=== PATIENT | female | born 1950 | race Caucasian/White ===

== ENCOUNTER → 2017-04-15 | Outpatient (CLI) | payer MEDICARE ==
--- NOTE | 2017-04-16 10:06 | MM ---
Reason for exam: screening (asymptomatic). Last mammogram was performed 1 year ago. History: Patient is postmenopausal. Took estrogen for 2 years beginning at age 50. Physical Findings: A clinical breast exam by your physician is recommended on an annual basis and results should be correlated with mammographic findings. MG 3D Screening Mammo W/Cad Bilateral CC and MLO view(s) were taken. Prior study comparison: April 12, 2016, bilateral MG 3d screening mammo w/cad. March 01, 2015, bilateral MG screening mammo w CAD. The breast tissue is heterogeneously dense. This may lower the sensitivity of mammography. There is chronic nodularity bilaterally. No significant changes when compared with prior studies. ASSESSMENT: Benign, BI-RAD 2 RECOMMENDATION: Routine screening mammogram of both breasts in 1 year.
== END | disposition home or self-care (01) ==
LOC: RADMAMWWP 10:03
PROVIDERS: ATTEND Internal Medicine
DX: Z12.31 Encounter for screening mammogram for malignant neoplasm of breast (principal)
CPT/HCPCS: 77063; G0202

== ENCOUNTER → 2018-04-24 | Outpatient (CLI) | payer MEDICARE ==
--- NOTE | 2018-04-27 12:44 | MM ---
Reason for exam: screening (asymptomatic). Last mammogram was performed 1 year ago. History: Patient is postmenopausal. Took estrogen for 2 years beginning at age 50. Physical Findings: A clinical breast exam by your physician is recommended on an annual basis and results should be correlated with mammographic findings. MG 3D Screening Mammo W/Cad Bilateral CC and MLO view(s) were taken. Prior study comparison: April 15, 2017, bilateral MG 3d screening mammo w/cad. April 12, 2016, bilateral MG 3d screening mammo w/cad. The breast tissue is heterogeneously dense. This may lower the sensitivity of mammography. Stable benign calcifications. No significant changes when compared with prior studies. ASSESSMENT: Benign, BI-RAD 2 RECOMMENDATION: Routine screening mammogram of both breasts in 1 year.
== END | disposition home or self-care (01) ==
LOC: RADMAMWWP 13:36
PROVIDERS: ATTEND Internal Medicine
DX: Z12.31 Encounter for screening mammogram for malignant neoplasm of breast (principal)
CPT/HCPCS: 77063; 77067

== ENCOUNTER → 2019-04-26 | Outpatient (CLI) | payer MEDICARE ==
--- NOTE | 2019-04-26 11:02 | MM ---
Reason for exam: screening (asymptomatic). Last mammogram was performed 1 year ago. History: Patient is postmenopausal. Family history of breast cancer in sister. Took estrogen for 2 years beginning at age 50. Physical Findings: A clinical breast exam by your physician is recommended on an annual basis and results should be correlated with mammographic findings. MG 3D Screening Mammo W/Cad Bilateral CC and MLO view(s) were taken. Prior study comparison: April 24, 2018, bilateral MG 3d screening mammo w/cad. April 15, 2017, bilateral MG 3d screening mammo w/cad. The breast tissue is heterogeneously dense. This may lower the sensitivity of mammography. There are benign appearing round dystrophic calcifications bilaterally. There is chronic nodularity bilaterally. Focal asymmetry right more prominent 2D verus tomosynthesis images. ASSESSMENT: Incomplete: need additional imaging evaluation, BI-RAD 0 RECOMMENDATION: Special view mammogram of the right breast. If lesion persists on supplemental views, image directed ultrasound is recommended. [facility] will attempt to contact patient to return for supplemental views and ultrasound if indicated.
--- NOTE | 2019-04-26 19:24 | BD ---
EXAMINATION TYPE: Axial Bone Density DATE OF EXAM: 04/26/2019 COMPARISON: 2010 CLINICAL HISTORY: 68-year-old female postmenopausal screening without HRT Height: 65.25 Weight: 283 FRAX RISK QUESTIONS: Alcohol (3 or more units per day): no Family History (Parent hip fracture): yes, father Glucocorticoids (More than 3mos): no (Ex: prednisone, prednisolone, methylprednisolone, dexamethasone, and hydrocortisone). History of Fracture in Adulthood: yes, finger, toe Secondary Osteoporosis: 1. Type 1 Diabetes: no 2. Hyperthyroidism: no 3. Menopause before 45: no 4. Malnutrition: no 5. Chronic liver disease: no Rheumatoid Arthritis: no Current Tobacco Use: no RISK FACTORS HISTORY OF: Family History of Osteoporosis: yes Active: yes Diet low in dairy products/other sources of calcium: at least one serving a day Postmenopausal woman: yes Take estrogen and/or progesterone medications: not now How long: estrogen about 2 years Lost more than 2 inches in height since high school: possibly, states height may have been close to 6 8 inches at one time Frequent falls: no Poor Health: "fair" Hyperparathyroidism: no Adrenal Insufficiency: no MEDICATIONS: Prednisone or other steroids: no Thyroid Medications: yes Which medication: Levothyroxine How Long: over 5 or more Osteoporosis Medications: no Additional Medications: blood pressure med, cholesterol med Additional History: bilateral knee replacement EXAM MEASUREMENTS: Bone mineral densitometry was performed using the [employer] System. Bone mineral density as measured about the Lumbar spine is: ----- L1-L4(G/cm2): 1.304 T Score Values are as follows: ----- L2: 0.5 ----- L3: 1.5 ----- L4: 0.6 ----- L1-L4: 1.0 Bone mineral density has: Increased 1.6% since study of: 02/14/2011 Bone mineral density about the R hip (g/cm2): 1.006 Bone mineral density about the L hip (g/cm2): 1.058 T Score values are as follows: -----R Neck: -0.2 -----L Neck: 0.1 -----R Total: 0.2 -----L Total: 0.8 Bone mineral density has: Decreased -5.1% since study of: 02/14/2011 IMPRESSION: Normal (Values between +1 and -1 indicate normal bone mass). Consider repeating this study in 5 year s or sooner if there is some new clinical indication. NOTE: T-SCORE=SD OF THE YOUNG ADULT MEAN.
== END | disposition home or self-care (01) ==
LOC: RADMAMWWP 08:12
PROVIDERS: ATTEND Internal Medicine
DX: Z12.31 Encounter for screening mammogram for malignant neoplasm of breast (principal); Z78.0 Asymptomatic menopausal state
CPT/HCPCS: 77063; 77067; 77080

== ENCOUNTER → 2019-05-06 | Outpatient (CLI) | payer MEDICARE ==
--- NOTE | 2019-05-06 10:04 | MM ---
Reason for exam: additional evaluation requested from abnormal screening. Last mammogram was performed less than 1 month ago. History: Patient is postmenopausal. Took estrogen for 2 years beginning at age 50. Physical Findings: Nurse did not find any significant physical abnormalities on exam. MG 3D Work Up W/Cad RT LM and spot compression MLO view(s) were taken of the right breast. Prior study comparison: April 26, 2019, bilateral MG 3d screening mammo w/cad. April 24, 2018, bilateral MG 3d screening mammo w/cad. The breast tissue is heterogeneously dense. This may lower the sensitivity of mammography. Benign appearing calcifications in the right breast. The previously seen abnormality resolves on additional views and appears as fibroglandular tissue compatible with summation. These results were verbally communicated with the patient and result sheet given to the patient on 05/06/19. ASSESSMENT: Benign, BI-RAD 2 RECOMMENDATION: Return to routine screening mammogram schedule for both breasts.
== END | disposition home or self-care (01) ==
LOC: RADMAMWWP 08:54
PROVIDERS: ATTEND Internal Medicine
DX: R92.8 Other abnormal and inconclusive findings on diagnostic imaging of breast (principal)
CPT/HCPCS: 77065; G0279; 77061

== ENCOUNTER 2020-08-05 13:48 | Emergency (ER) | payer MEDICARE ==
[2020-08-05 15:21] LABS: Basophils # (A) 0.1 k/uL (0-0.2); Basophils % (A) 1 %; Eosinophils # (A) 0.4 k/uL (0-0.7); Eosinophils % (A) 5 %; HCT 46.1 % (34.0-46.0); HGB 15.8 gm/dL (11.4-16.0); Lymphocytes # (A) 2.4 k/uL (1.0-4.8); Lymphocytes % (A) 26 %; MCH 29.3 pg (25.0-35.0); MCHC 34.2 g/dL (31.0-37.0); MCV 85.7 fL (80.0-100.0); Mean Platelet Volume 6.8; Monocytes # (A) 0.5 k/uL (0-1.0); Monocytes % (A) 6 %; Neutrophils # (A) 5.5 k/uL (1.3-7.7); Neutrophils % (A) 60 %; Platelet Count 198 k/uL (150-450); RBC 5.38 m/uL (3.80-5.40); RDW 13.8 % (11.5-15.5); WBC 9.2 k/uL (3.8-10.6)
--- NOTE | 2020-08-05 15:32 | ED ---
General Adult HPI - General Chief complaint: Recheck/Abnormal Lab/Rx Stated complaint: BP problems Time Seen by Provider: 08/05/20 14:37 Source: patient, RN notes reviewed, old records reviewed Mode of arrival: ambulatory Limitations: no limitations - History of Present Illness Initial comments: 69-year-old female patient to ED for evaluation of hypertension. Patient was that she has been under a significant amount of stress recently due to the holidays and family issues. She reports a lot of anxiety. She reports that she has been taking her blood pressure at home and it has been elevated. She denies any chest pain or any other symptoms. Denies any other complaints. Systemic: Pt denies fatigue, fever/chills, rash. Pt denies weakness, night swe ats, weight loss. Neuro: Pt denies headache, visual disturbances, syncope or pre-syncope. HEENT: Pt denies ocular discharge or irritation, otalgia, rhinorrhea, pharyngitis or notable lymphadenopathy. Cardiopulmonary: Pt denies chest pain, SOB, heart palpitations, dyspnea on exertion. Abdominal/GI: Pt denies abdominal pain, n/v/d. : Pt denies dysuria, burning w/ urination, frequency/urgency. Denies new onset urinary or bowel incontinence. MSK: Pt denies myalgia, loss of strength or function in extremities. Neuro: Pt denies new onset weakness, paresthesias. - Related Data Home Medications Medication Instructions Recorded Confirmed ALPRAZolam [Xanax] 0.25 mg PO Q8H PRN 07/14/16 07/14/16 Atorvastatin [Lipitor] 20 mg PO DAILY 07/14/16 07/14/16 Bumetanide [BUMEX] 1 mg PO DAILY 07/14/16 07/14/16 Cholecalciferol [Vitamin D3] 2,000 unit PO DAILY 07/14/16 07/14/16 Fluocinonide 0.05% [Fluocinonide] 1 applic TOPICAL BID PRN 07/14/16 07/14/16 Levothyroxine Sodium [Synthroid] 75 mcg PO DAILY 07/14/16 07/14/16 Metoprolol Tartrate [Lopressor] 25 mg PO BID 07/14/16 07/14/16 Potassium Chloride ER [K-Dur 10] 10 meq PO BID 07/14/16 07/14/16 Spironolactone [Aldactone] 12.5 mg PO DAILY 07/14/16 07/14/16 Topiramate [Topamax] 50 mg PO DAILY 07/14/16 07/14/16 Travoprost [Travatan Z 0.004%] 1 drop BOTH EYES HS 07/14/16 07/14/16 Allergies Allergy/AdvReac Type Severity Reaction Status Date / Time amoxicillin Allergy Rash/Hives Verified 08/05/20 14:28 atenolol [From Tenormin] Allergy INTENSIFIES Verified 08/05/20 14:28 ASTHMA levofloxacin [From Levaquin] Allergy INTENSIFIES Verified 08/05/20 14:28 SOUNDS/INSOMNIA Review of Systems ROS Statement: Those systems with pertinent positive or pertinent negative responses have been documented in the HPI. ROS Other: All systems not noted in ROS Statement are negative. Past Medical History Past Medical History: Hypertension Additional Past Medical History / Comment(s): hand tremor, cellulitis History of Any Multi-Drug Resistant Organisms: None Reported Past Surgical History: Cholecystectomy Additional Past Surgical History / Comment(s): knee replacement bilateral Past Psychological History: Anxiety Smoking Status: Never smoker Past Alcohol Use History: None Reported Past Drug Use History: None Reported General Exam - General Exam Comments Initial Comments: Constitutional: NAD, AOX3, Pt has pleasant affect. HEENT: NC/AT, trachea midline, neck supple, no lymphadenopathy. External ears appear normal, without discharge. Mucous membranes moist. Eyes PERRLA, EOM intact. There is no scleral icterus. No pallor noted. Cardiopulmonary: RRR, no murmurs, rubs or gallops, no JVD noted. Lungs CTAB in anterior and posterior quiñonez. No peripheral edema. Abdominal exam: Abdomen soft and non-distended. Abdomen non-tender to palpation in all 4 quadrants. Bowel sounds active in LLQ. No hepatosplenomegaly. No ecchymosis Neuro: CN II-XII grossly intact. No nuchal rigidity. No raccon eyes, no calhoun sign, no hemotympanum. No cervical spinal tenderness. MSK: Full active ROM in upper and lower extremities, 5/5 stregnth. Limitations: no limitations Course Vital Signs 08/05/20 08/05/20 08/05/20 14:26 15:00 15:28 Temperature 98.0 F Pulse Rate 64 68 Respiratory 20 18 Rate Blood Pressure 198/74 144/62 129/51 O2 Sat by Pulse 99 100 Oximetry Medical Decision Making - Medical Decision Making 69-year-old female patient to ED for evaluation of anxiety and hypertension. Patient's blood pressure came down within acceptable limits without any intervention. Patient laboratory investigations do reveal hypokalemia. Patient is currently on potassium supplement supplementation, she was given a dose of potassium emergency Department she'll follow up with her primary care provider and have a recheck next week. Patient labs also displayed mild dehydration, she will orally rehydrate. Patient will continue monitor blood pressure home and to ED if any worsening symptoms. Case discussed with Dr. Torrez. - Lab Data Result diagrams: 08/05/20 15:15 08/05/20 15:15 Lab Results 08/05/20 08/05/20 08/05/20 Range/Units 15:15 15:15 15:15 WBC 9.2 (3.8-10.6) k/uL RBC 5.38 (3.80-5.40) m/uL Hgb 15.8 (11.4-16.0) gm/dL Hct 46.1 H (34.0-46.0) % MCV 85.7 (80.0-100.0) fL MCH 29.3 (25.0-35.0) pg MCHC 34.2 (31.0-37.0) g/dL RDW 13.8 (11.5-15.5) % Plt Count 198 (150-450) k/uL MPV 6.8 Neutrophils % 60 % Lymphocytes % 26 % Monocytes % 6 % Eosinophils % 5 % Basophils % 1 % Neutrophils # 5.5 (1.3-7.7) k/uL Lymphocytes # 2.4 (1.0-4.8) k/uL Monocytes # 0.5 (0-1.0) k/uL Eosinophils # 0.4 (0-0.7) k/uL Basophils # 0.1 (0-0.2) k/uL Sodium 139 (137-145) mmol/L Potassium 2.9 L (3.5-5.1) mmol/L Chloride 94 L (98-107) mmol/L Carbon Dioxide 35 H (22-30) mmol/L Anion Gap 10 mmol/L BUN 28 H (7-17) mg/dL Creatinine 0.84 (0.52-1.04) mg/dL Est GFR (CKD-EPI)AfAm 81 (>60 ml/min/1.73 sqM) Est GFR (CKD-EPI)NonAf 70 (>60 ml/min/1.73 sqM) Glucose 111 H (74-99) mg/dL Calcium 9.8 (8.4-10.2) mg/dL Phosphorus 4.0 (2.5-4.5) mg/dL Magnesium 2.3 (1.6-2.3) mg/dL Total Bilirubin 0.4 (0.2-1.3) mg/dL AST 29 (14-36) U/L ALT 23 (4-34) U/L Alkaline Phosphatase 93 (38-126) U/L Troponin I <0.012 (0.000-0.034) ng/mL Total Protein 7.9 (6.3-8.2) g/dL Albumin 4.3 (3.5-5.0) g/dL - EKG Data -: EKG Interpreted by Me (and Dr. Torrez ) EKG Comments: Ventricular rate 62, AR interval 180, QRS 96, QT/QTc 440/446. Normal sinus rhythm. Nonspecific T-wave abnormality. No concern for acute ischemia at this time. Disposition Clinical Impression: Hypertension, Anxiety, Hypokalemia Disposition: HOME SELF-CARE Condition: Stable Instructions (If sedation given, give patient instructions): Hypertension (ED), Hypokalemia (ED) Additional Instructions: Follow up with PCP tomorrow. Have potassium recheck next week. Continue to monitor blood pressure at home. Return to ED with any worsening symptoms. Is patient prescribed a controlled substance at d/c from ED?: No Referrals: Nolan Sanchez MD [Primary Care Provider] - 1-2 days
[2020-08-05 15:39] LABS: Albumin 4.3 g/dL (3.5-5.0); Calcium 9.8 mg/dL (8.4-10.2); Magnesium 2.3 mg/dL (1.6-2.3); Potassium 2.9 mmol/L (3.5-5.1); Total Bilirubin 0.4 mg/dL (0.2-1.3); Total Protein 7.9 g/dL (6.3-8.2)
[2020-08-05] MEDS ORDERED: POTASSIUM CHLORIDE ER 20 MEQ TAB.ER PO STA (16:10)
[2020-08-05] MEDS ORDERED: ALPRAZolam 0.25 MG TAB PO STA (16:25)
[2020-08-05 16:35] VITALS: BP 122/53; PULSE 82; RESP 20; TEMP 98.5
== END 2020-08-05 16:56 | disposition home or self-care (01) ==
LOC: EC 13:48
DX: I10 Essential (primary) hypertension (principal); F41.9 Anxiety disorder, unspecified; E87.6 Hypokalemia; Z79.899 Other long term (current) drug therapy; Z79.890 Hormone replacement therapy; Z88.0 Allergy status to penicillin; Z88.1 Allergy status to other antibiotic agents; Z88.8 Allergy status to other drugs, medicaments and biological substances; Z96.653 Presence of artificial knee joint, bilateral
CPT/HCPCS: 36415; 80053; 83735; 84100; 84484; 85025; 93005; 99284

== ENCOUNTER → 2020-08-08 | Outpatient (CLI) | payer MEDICARE ==
[2020-08-08 19:59] LABS: Anion Gap 8.4 mmol/L (4.00-12.00); BUN/Creat Ratio 27.5 Ratio (12.00-20.00); Calcium 9.7 mg/dL (8.7-10.3); Carbon Dioxide 33.6 mmol/L (21.6-31.8); Non-African American GFR(CKD) 74.2 (60.0-200.0); Potassium 3.5 mmol/L (3.5-5.5)
== END | disposition home or self-care (01) ==
LOC: LABWHC1 10:51
PROVIDERS: ATTEND Physician Assistant
DX: I10 Essential (primary) hypertension (principal)
CPT/HCPCS: 36415; 80048

== ENCOUNTER 2020-10-07 17:36 | Emergency (ER) | payer MEDICARE ==
[2020-10-07] MEDS ORDERED: SODIUM CHLORIDE 0.9% 500 ML 500 ML IV STA (17:49)
--- NOTE | 2020-10-07 18:00 | ED ---
General Adult HPI - General Chief complaint: Dizziness Stated complaint: Elevated BP,Dizziness Time Seen by Provider: 10/07/20 17:46 Source: patient Mode of arrival: wheelchair Limitations: no limitations - History of Present Illness Initial comments: Dictation was produced using [employer] dictation software. please excuse any grammatical, word or spelling errors. This patient was cared for during a federal and state declared state of emergency secondary to Covid 19 Chief Complaint: 70-year-old female presents with dizziness and elevated blood pressure History of Present Illness: Patient is 70-year-old female she presents to the em ergency department for dizziness and elevated blood pressure. Patient checks her blood pressure regularly as recommended by her primary care physician. She checked it today and was found to be high. Systolic blood pressure she measured was 180. She normally is in the 120s however has had blood pressures with systolics in the 140s. Patient has any severe headache. No chest pain or shortness of breath no numbness and paresthesias to the extremities. Patient drove here. She has history of anxiety and takes anxiolytic medications. She states that sitting that blood pressure never caused her to be anxious. Chin and takes blood pressure medications. 4 days ago patient had the rotavirus vaccine. She states that she's been feeling some symptoms from that. The ROS documented in this emergency department record has been reviewed and confirmed by me. Those systems with pertinent positive or negative responses have been documented in the HPI. All other systems are other negative and/or noncontributory. PHYSICAL EXAM: General Impression: Alert and oriented x3, not in acute distress HEENT: Normocephalic atraumatic, extra-ocular movements intact, pupils equal and reactive to light bilaterally, mucous membranes moist. Cardiovascular: Heart regular rate and rhythm Chest: Able to complete full sentences, no retractions, no tachypnea Abdomen: abdomen soft, non-tender, non-distended, no organomegaly Musculoskeletal: Pulses present and equal in all extremities, no peripheral sriram ma Motor: no focal deficits noted Neurological: CN II-XII grossly intact, no focal motor or sensory deficits noted Skin: Intact with no visualized rashes Psych: Anxious ED course: 70 yo female presents with chief complaint of hypertension. Patient does not have any signs or symptoms of hypertensive emergency. Vital signs upon arrival are within acceptable limits. Blood pressure is 145/82. Laboratory evaluation obtained showing no acute processes. Patient observed in emergency Department with correction of her blood pressure. Repeat blood pressures 135/59. Patient reevaluated bedside at 8:00 PM stable medical condition. Patient be discharged. EKG interpretation: Ventricular rate 62, normal sinus rhythm,. Interval 180, QRS 100, QTC 454. No KS prolongation, no QTC prolongation, no ST or T-wave changes noted. EKG compared to August 05 2020 showing no changes. Overall, this EKG is unremarkable - Related Data Home Medications Medication Instructions Recorded Confirmed Atorvastatin [Lipitor] 20 mg PO HS 07/14/16 08/05/20 Bumetanide [BUMEX] 2 mg PO DAILY@1600 07/14/16 08/05/20 Cholecalciferol [Vitamin D3] 2,000 unit PO HS 07/14/16 08/05/20 Levothyroxine Sodium [Synthroid] 75 mcg PO DAILY 07/14/16 08/05/20 Metoprolol Tartrate [Lopressor] 25 mg PO BID 07/14/16 08/05/20 Potassium Chloride ER [K-Dur 10] 20 meq PO BID 07/14/16 08/05/20 Ascorbic Acid [Vitamin C] 1,000 mg PO DAILY 08/05/20 08/05/20 Latanoprost [Xalatan 0.005%] 1 drop BOTH EYES HS 08/05/20 08/05/20 Topiramate [Topamax] 50 mg PO HS 08/05/20 08/05/20 Allergies Allergy/AdvReac Type Severity Reaction Status Date / Time amoxicillin Allergy Rash/Hives Verified 10/07/20 17:45 atenolol [From Tenormin] Allergy INTENSIFIES Verified 10/07/20 17:45 ASTHMA levofloxacin [From Levaquin] Allergy INTENSIFIES Verified 10/07/20 17:45 SOUNDS/INSOMNIA Review of Systems ROS Statement: Those systems with pertinent positive or pertinent negative responses have been documented in the HPI. ROS Other: All systems not noted in ROS Statement are negative. Past Medical History Past Medical History: Hypertension Additional Past Medical History / Comment(s): hand tremor, cellulitis History of Any Multi-Drug Resistant Organisms: None Reported Past Surgical History: Cholecystectomy Additional Past Surgical History / Comment(s): knee replacement bilateral Past Psychological History: Anxiety Smoking Status: Never smoker Past Alcohol Use History: None Reported Past Drug Use History: None Reported General Exam Limitations: no limitations Course Vital Signs 10/07/20 10/07/20 17:43 19:52 Temperature 97.9 F Pulse Rate 68 60 Respiratory 16 18 Rate Blood Pressure 145/82 135/59 O2 Sat by Pulse 100 99 Oximetry Medical Decision Making - Lab Data Result diagrams: 10/07/20 18:08 10/07/20 18:08 Lab Results 10/07/20 10/07/20 Range/Units 18:08 18:08 WBC 7.7 (3.8-10.6) k/uL RBC 5.78 H (3.80-5.40) m/uL Hgb 16.5 H (11.4-16.0) gm/dL Hct 50.1 H (34.0-46.0) % MCV 86.6 (80.0-100.0) fL MCH 28.5 (25.0-35.0) pg MCHC 33.0 (31.0-37.0) g/dL RDW 13.6 (11.5-15.5) % Plt Count 181 (150-450) k/uL MPV 7.4 Neutrophils % 51 % Lymphocytes % 35 % Monocytes % 6 % Eosinophils % 4 % Basophils % 1 % Neutrophils # 3.9 (1.3-7.7) k/uL Lymphocytes # 2.7 (1.0-4.8) k/uL Monocytes # 0.5 (0-1.0) k/uL Eosinophils # 0.3 (0-0.7) k/uL Basophils # 0.1 (0-0.2) k/uL Sodium 138 (137-145) mmol/L Potassium 3.6 (3.5-5.1) mmol/L Chloride 96 L (98-107) mmol/L Carbon Dioxide 29 (22-30) mmol/L Anion Gap 13 mmol/L BUN 19 H (7-17) mg/dL Creatinine 0.63 (0.52-1.04) mg/dL Est GFR (CKD-EPI)AfAm >90 (>60 ml/min/1.73 sqM) Est GFR (CKD-EPI)NonAf 90 (>60 ml/min/1.73 sqM) Glucose 87 (74-99) mg/dL Calcium 9.6 (8.4-10.2) mg/dL Magnesium 2.1 (1.6-2.3) mg/dL Disposition Clinical Impression: Hypertension Disposition: HOME SELF-CARE Condition: Good Instructions (If sedation given, give patient instructions): Dizziness (ED), Hypertension (ED) Is patient prescribed a controlled substance at d/c from ED?: No Referrals: Nolan Sanchez MD [Primary Care Provider] - 1-2 days Time of Disposition: 20:04
[2020-10-07 19:23] LABS: Basophils # (A) 0.1 k/uL (0-0.2); Basophils % (A) 1 %; Eosinophils # (A) 0.3 k/uL (0-0.7); Eosinophils % (A) 4 %; HCT 50.1 % (34.0-46.0); HGB 16.5 gm/dL (11.4-16.0); Lymphocytes # (A) 2.7 k/uL (1.0-4.8); Lymphocytes % (A) 35 %; MCH 28.5 pg (25.0-35.0); MCV 86.6 fL (80.0-100.0); Mean Platelet Volume 7.4; Monocytes # (A) 0.5 k/uL (0-1.0); Monocytes % (A) 6 %; Neutrophils # (A) 3.9 k/uL (1.3-7.7); Neutrophils % (A) 51 %; Platelet Count 181 k/uL (150-450); RBC 5.78 m/uL (3.80-5.40); RDW 13.6 % (11.5-15.5); WBC 7.7 k/uL (3.8-10.6)
[2020-10-07 19:48] LABS: African American GFR (CKD) >90 (>60 ml/min/1.73 sqM); Anion Gap 13 mmol/L; Blood Urea Nitrogen 19 mg/dL (7-17); Calcium 9.6 mg/dL (8.4-10.2); Carbon Dioxide 29 mmol/L (22-30); Chloride 96 mmol/L (98-107); Glucose 87 mg/dL (74-99); Magnesium 2.1 mg/dL (1.6-2.3); Non-African American GFR(CKD) 90 (>60 ml/min/1.73 sqM); Potassium 3.6 mmol/L (3.5-5.1); Sodium 138 mmol/L (137-145)
[2020-10-07 19:54] VITALS: RESP 18
[2020-10-07] MEDS ORDERED: ASPIRIN 81 MG PO STA (20:01)
[2020-10-07] MEDS ORDERED: TICAGRELOR 90 MG TAB PO STA (20:01)
[2020-10-07] MEDS ORDERED: ATORVASTATIN 80 MG TAB PO STA (20:02)
[2020-10-07 21:17] VITALS: BP 137/78; PULSE 78; TEMP 98
== END 2020-10-07 21:18 | disposition home or self-care (01) ==
LOC: EC 17:36
DX: I10 Essential (primary) hypertension (principal); R42 Dizziness and giddiness; R51.9 Headache, unspecified; F41.9 Anxiety disorder, unspecified; Z79.899 Other long term (current) drug therapy; Z88.0 Allergy status to penicillin; Z88.1 Allergy status to other antibiotic agents; Z88.8 Allergy status to other drugs, medicaments and biological substances; Z96.653 Presence of artificial knee joint, bilateral
CPT/HCPCS: 36415; 80048; 83735; 85025; 93005; 96360; 99284

== ENCOUNTER → 2020-12-22 | Outpatient (CLI) | payer MEDICARE ==
--- NOTE | 2020-12-25 08:59 | MM ---
Reason for exam: screening (asymptomatic). Last mammogram was performed 1 year and 8 months ago. History: Patient is postmenopausal. Took estrogen for 2 years beginning at age 50. Physical Findings: A clinical breast exam by your physician is recommended on an annual basis and results should be correlated with mammographic findings. MG 3D Screening Mammo W/Cad Bilateral CC and MLO view(s) were taken. Prior study comparison: May 06, 2019, right breast MG 3d work up w/cad RT. April 26, 2019, bilateral MG 3d screening mammo w/cad. The breast tissue is heterogeneously dense. This may lower the sensitivity of mammography. There are benign appearing round calcifications bilaterally. There is chronic nodularity bilaterally. There is no discrete abnormality. ASSESSMENT: Benign, BI-RAD 2 RECOMMENDATION: Routine screening mammogram of both breasts in 1 year.
== END | disposition home or self-care (01) ==
LOC: RADMAMWWP 09:12
PROVIDERS: ATTEND Internal Medicine
DX: Z12.31 Encounter for screening mammogram for malignant neoplasm of breast (principal); Z78.0 Asymptomatic menopausal state
CPT/HCPCS: 77063; 77067

== ENCOUNTER 2020-12-23 08:20 | Emergency (ER) | payer MEDICARE ==
[2020-12-23 08:25] VITALS: TEMP 97.3
[2020-12-23] MEDS ORDERED: SODIUM CHLORIDE 0.9% 500 ML 500 ML IV STA (08:33)
--- NOTE | 2020-12-23 08:52 | ED ---
General Adult HPI - General Chief complaint: Recheck/Abnormal Lab/Rx Stated complaint: elevated BP Time Seen by Provider: 12/23/20 08:26 Source: patient, RN notes reviewed Mode of arrival: ambulatory Limitations: no limitations - History of Present Illness Initial comments: 70-year-old female with a past medical history of hypertension, gout presents to the emergency room for high blood pressure. Patient reports her blood pressure medications were changed 2 days ago. Patient reports she was taken off of triamterene-hctz and changes to losartan due to gout. Patient reports this morning when she checked her blood pressure was 200 over something. Patient reports this caused her anxiety and when she checked it a second time it was even higher. This concerned her so she came to the ER. Patient denies chest pain or shortness of breath. Patient reports she took her medication at night.Patient has no other complaints at this time including shortness of breath, chest pain, abdominal pain, nausea or vomiting, headache, or visual changes. - Related Data Home Medications Medication Instructions Recorded Confirmed Atorvastatin [Lipitor] 20 mg PO HS 07/14/16 08/05/20 Bumetanide [BUMEX] 2 mg PO DAILY@1600 07/14/16 08/05/20 Cholecalciferol [Vitamin D3] 2,000 unit PO HS 07/14/16 08/05/20 Levothyroxine Sodium [Synthroid] 75 mcg PO DAILY 07/14/16 08/05/20 Metoprolol Tartrate [Lopressor] 25 mg PO BID 07/14/16 08/05/20 Potassium Chloride ER [K-Dur 10] 20 meq PO BID 07/14/16 08/05/20 Ascorbic Acid [Vitamin C] 1,000 mg PO DAILY 08/05/20 08/05/20 Latanoprost [Xalatan 0.005%] 1 drop BOTH EYES HS 08/05/20 08/05/20 Topiramate [Topamax] 50 mg PO HS 08/05/20 08/05/20 Allergies Allergy/AdvReac Type Severity Reaction Status Date / Time amoxicillin Allergy Rash/Hives Verified 12/23/20 08:25 atenolol [From Tenormin] Allergy INTENSIFIES Verified 12/23/20 08:25 ASTHMA levofloxacin [From Levaquin] Allergy INTENSIFIES Verified 12/23/20 08:25 SOUNDS/INSOMNIA Review of Systems ROS Statement: Those systems with pertinent positive or pertinent negative responses have been documented in the HPI. ROS Other: All systems not noted in ROS Statement are negative. Past Medical History Past Medical History: Hypertension Additional Past Medical History / Comment(s): hand tremor, cellulitis, GOUT History of Any Multi-Drug Resistant Organisms: None Reported Past Surgical History: Cholecystectomy Additional Past Surgical History / Comment(s): knee replacement bilateral Past Psychological History: Anxiety Smoking Status: Never smoker Past Alcohol Use History: None Reported Past Drug Use History: None Reported General Exam Limitations: no limitations General appearance: alert, in no apparent distress Head exam: Present: atraumatic, normocephalic, normal inspection Eye exam: Present: normal appearance, PERRL, EOMI. Absent: scleral icterus, conjunctival injection, periorbital swelling ENT exam: Present: normal exam, mucous membranes moist Neck exam: Present: normal inspection. Absent: tenderness, meningismus, lymphadenopathy Respiratory exam: Present: normal lung sounds bilaterally. Absent: respiratory distress, wheezes, rales, rhonchi, stridor Cardiovascular Exam: Present: regular rate, normal rhythm, normal heart sounds GI/Abdominal exam: Present: soft, normal bowel sounds. Absent: distended, tenderness, guarding, rebound, rigid Course Vital Signs 12/23/20 12/23/20 08:22 09:25 Temperature 97.3 F L Pulse Rate 75 60 Respiratory 20 18 Rate Blood Pressure 157/70 137/65 O2 Sat by Pulse 100 100 Oximetry EKG Findings - EKG Comments: EKG Findings:: Normal sinus rhythm, ventricular rate 61, NE interval 190, QTc 446 Medical Decision Making - Medical Decision Making Patient presents with a blood pressure 157/70. EKG unremarkable. CBC unremarkable. Potassium replaced orally as she was mildly hypokalemic at 3.1. EKG unremarkable, nonischemic. At this time blood pressure was repeated and is 137/65. Patient states she is feeling well, at her baseline. Patient will be discharged to follow-up with primary care. Will return here for any worsening symptoms. - Lab Data Result diagrams: 12/23/20 08:41 12/23/20 08:41 Lab Results 12/23/20 12/23/20 Range/Units 08:41 08:41 WBC 7.9 (3.8-10.6) k/uL RBC 5.03 (3.80-5.40) m/uL Hgb 14.7 (11.4-16.0) gm/dL Hct 42.8 (34.0-46.0) % MCV 85.2 (80.0-100.0) fL MCH 29.2 (25.0-35.0) pg MCHC 34.2 (31.0-37.0) g/dL RDW 13.8 (11.5-15.5) % Plt Count 182 (150-450) k/uL MPV 6.9 Neutrophils % 55 % Lymphocytes % 30 % Monocytes % 6 % Eosinophils % 6 % Basophils % 1 % Neutrophils # 4.3 (1.3-7.7) k/uL Lymphocytes # 2.4 (1.0-4.8) k/uL Monocytes # 0.5 (0-1.0) k/uL Eosinophils # 0.5 (0-0.7) k/uL Basophils # 0.1 (0-0.2) k/uL Sodium 139 (137-145) mmol/L Potassium 3.1 L (3.5-5.1) mmol/L Chloride 102 (98-107) mmol/L Carbon Dioxide 29 (22-30) mmol/L Anion Gap 8 mmol/L BUN 15 (7-17) mg/dL Creatinine 0.75 (0.52-1.04) mg/dL Est GFR (CKD-EPI)AfAm >90 (>60 ml/min/1.73 sqM) Est GFR (CKD-EPI)NonAf 80 (>60 ml/min/1.73 sqM) Glucose 102 H (74-99) mg/dL Calcium 8.5 (8.4-10.2) mg/dL Total Bilirubin 0.5 (0.2-1.3) mg/dL AST 26 (14-36) U/L ALT 20 (4-34) U/L Alkaline Phosphatase 89 (38-126) U/L Total Protein 6.8 (6.3-8.2) g/dL Albumin 3.7 (3.5-5.0) g/dL Disposition Clinical Impression: Hypertension Disposition: HOME SELF-CARE Condition: Good Instructions (If sedation given, give patient instructions): Hypertension (ED) Additional Instructions: Please follow-up with your doctor in one to 2 days. Have your potassium repeated. Return to the emergency room for any worsening symptoms. Is patient prescribed a controlled substance at d/c from ED?: No Referrals: Nolan Sanchez MD [Primary Care Provider] - 1-2 days Time of Disposition: 09:49
[2020-12-23 09:05] LABS: Basophils # (A) 0.1 k/uL (0-0.2); Basophils % (A) 1 %; Eosinophils # (A) 0.5 k/uL (0-0.7); Eosinophils % (A) 6 %; HCT 42.8 % (34.0-46.0); HGB 14.7 gm/dL (11.4-16.0); Lymphocytes # (A) 2.4 k/uL (1.0-4.8); Lymphocytes % (A) 30 %; MCH 29.2 pg (25.0-35.0); MCHC 34.2 g/dL (31.0-37.0); MCV 85.2 fL (80.0-100.0); Mean Platelet Volume 6.9; Monocytes # (A) 0.5 k/uL (0-1.0); Monocytes % (A) 6 %; Neutrophils # (A) 4.3 k/uL (1.3-7.7); Neutrophils % (A) 55 %; Platelet Count 182 k/uL (150-450); RBC 5.03 m/uL (3.80-5.40); RDW 13.8 % (11.5-15.5); WBC 7.9 k/uL (3.8-10.6)
[2020-12-23 09:19] LABS: ALT 20 U/L (4-34); AST 26 U/L (14-36); African American GFR (CKD) >90 (>60 ml/min/1.73 sqM); Albumin 3.7 g/dL (3.5-5.0); Alkaline Phosphatase 89 U/L (38-126); Anion Gap 8 mmol/L; Blood Urea Nitrogen 15 mg/dL (7-17); Calcium 8.5 mg/dL (8.4-10.2); Carbon Dioxide 29 mmol/L (22-30); Chloride 102 mmol/L (98-107); Glucose 102 mg/dL (74-99); Non-African American GFR(CKD) 80 (>60 ml/min/1.73 sqM); Potassium 3.1 mmol/L (3.5-5.1); Sodium 139 mmol/L (137-145); Total Bilirubin 0.5 mg/dL (0.2-1.3); Total Protein 6.8 g/dL (6.3-8.2)
[2020-12-23] MEDS ORDERED: POTASSIUM CHLORIDE ER 20 MEQ TAB.ER PO STA (09:25)
[2020-12-23 09:26] VITALS: BP 137/65; PULSE 60; RESP 18
== END 2020-12-23 09:57 | disposition home or self-care (01) ==
LOC: EC 08:20
DX: I10 Essential (primary) hypertension (principal); Z96.653 Presence of artificial knee joint, bilateral; Z90.49 Acquired absence of other specified parts of digestive tract
CPT/HCPCS: 36415; 80053; 85025; 93005; 96360; 99283

== ENCOUNTER 2021-06-19 23:46 | Emergency (ER) | payer MEDICARE ==
[2021-06-19 23:58] VITALS: RESP 18
[2021-06-20] MEDS ORDERED: SODIUM CHLORIDE 0.9% 1,000 ML IV STA (01:05)
--- NOTE | 2021-06-20 01:05 | ED ---
URI HPI - General Chief Complaint: Upper Respiratory Infection Stated Complaint: poss dehydration Time Seen by Provider: 06/20/21 00:32 Source: patient, RN notes reviewed, old records reviewed Mode of arrival: ambulatory Limitations: no limitations - History of Present Illness Initial Comments: This is a 70-year-old female to the emergency department DF for evaluation patient has dry mouth with difficulty swallowing pain in the back of her throat. Patient states feels like she has trouble swallowing eating or drinking moving her neck. Significant swelling. Patient is on antibiotics for upper respiratory infection and sinus infection states that the symptoms are made are getting progressively worse. No other complaints no fevers MD Complaint: fever, cough, sore throat -: days(s) Severity: moderate Severity scale (1-10): 4 Quality: sharp Consistency: constant Improves With: nothing Worsens With: nothing Context: new medications Associated Symptoms: fever, chills Treatments Prior to Arrival: none - Related Data Home Medications Medication Instructions Recorded Confirmed Atorvastatin [Lipitor] 20 mg PO HS 07/14/16 08/05/20 Bumetanide [BUMEX] 2 mg PO DAILY@1600 07/14/16 08/05/20 Cholecalciferol [Vitamin D3] 2,000 unit PO HS 07/14/16 08/05/20 Levothyroxine Sodium [Synthroid] 75 mcg PO DAILY 07/14/16 08/05/20 Metoprolol Tartrate [Lopressor] 25 mg PO BID 07/14/16 08/05/20 Potassium Chloride ER [K-Dur 10] 20 meq PO BID 07/14/16 08/05/20 Ascorbic Acid [Vitamin C] 1,000 mg PO DAILY 08/05/20 08/05/20 Latanoprost [Xalatan 0.005%] 1 drop BOTH EYES HS 08/05/20 08/05/20 Topiramate [Topamax] 50 mg PO HS 08/05/20 08/05/20 Previous Rx's Medication Instructions Recorded Azithromycin [Zithromax Z-pack (6 0 mg PO DIRECTED #1 packet 06/20/21 tabs)] Allergies Allergy/AdvReac Type Severity Reaction Status Date / Time amoxicillin Allergy Rash/Hives Verified 06/19/21 23:58 atenolol [From Tenormin] Allergy INTENSIFIES Verified 06/19/21 23:58 ASTHMA levofloxacin [From Levaquin] Allergy INTENSIFIES Verified 06/19/21 23:58 SOUNDS/INSOMNIA Review of Systems ROS Statement: Those systems with pertinent positive or pertinent negative responses have been documented in the HPI. ROS Other: All systems not noted in ROS Statement are negative. Past Medical History Past Medical History: Hypertension Additional Past Medical History / Comment(s): hand tremor, cellulitis, GOUT History of Any Multi-Drug Resistant Organisms: None Reported Past Surgical History: Cholecystectomy Additional Past Surgical History / Comment(s): knee replacement bilateral Past Psychological History: Anxiety Smoking Status: Never smoker Past Alcohol Use History: None Reported Past Drug Use History: None Reported General Exam Limitations: no limitations General appearance: alert, in no apparent distress, anxious Head exam: Present: atraumatic, normocephalic, normal inspection Eye exam: Present: normal appearance, PERRL, EOMI. Absent: scleral icterus, conjunctival injection, periorbital swelling ENT exam: Present: normal exam, mucous membranes moist Neck exam: Present: normal inspection. Absent: tenderness, meningismus, lymphadenopathy Respiratory exam: Present: normal lung sounds bilaterally. Absent: respiratory distress, wheezes, rales, rhonchi, stridor Cardiovascular Exam: Present: regular rate, normal rhythm, normal heart sounds. Absent: systolic murmur, diastolic murmur, rubs, gallop, clicks GI/Abdominal exam: Present: soft, normal bowel sounds. Absent: distended, tenderness, guarding, rebound, rigid Extremities exam: Present: normal inspection, full ROM, normal capillary refill. Absent: tenderness, pedal edema, joint swelling, calf tenderness Back exam: Present: normal inspection Neurological exam: Present: alert, oriented X3, CN II-XII intact Psychiatric exam: Present: normal affect, normal mood Skin exam: Present: warm, dry, intact, normal color. Absent: rash Course Vital Signs 06/19/21 06/20/21 06/20/21 23:55 00:56 01:58 Temperature 98.2 F Pulse Rate 79 60 Respiratory 18 18 18 Rate Blood Pressure 156/84 140/68 O2 Sat by Pulse 99 97 Oximetry 06/20/21 03:59 Temperature 97.9 F Pulse Rate 59 L Respiratory 18 Rate Blood Pressure 136/79 O2 Sat by Pulse 99 Oximetry - Reevaluation(s) Reevaluation #1: Medical record is reviewed Patient symptoms are significantly improved here in the ER Patient informed results and questions answered Medical Decision Making - Medical Decision Making 70 female to the emergency department for evaluation. Patient feels weak and dehydrated with cough and congestion. No significant acute findings here in the ER. Patient feels comfortable for discharge - Lab Data Result diagrams: 06/20/21 01:06/20/21 01:23 Lab Results 06/20/21 06/20/21 06/20/21 Range/Units : 01: 01:23 WBC 9.8 (3.8-10.6) k/uL RBC 5.27 (3.80-5.40) m/uL Hgb 15.3 (11.4-16.0) gm/dL Hct 46.4 H (34.0-46.0) % MCV 88.0 (80.0-100.0) fL MCH 29.1 (25.0-35.0) pg MCHC 33.1 (31.0-37.0) g/dL RDW 13.6 (11.5-15.5) % Plt Count 177 (150-450) k/uL MPV 7.1 Neutrophils % 60 % Lymphocytes % 25 % Monocytes % 6 % Eosinophils % 5 % Basophils % 1 % Neutrophils # 5.9 (1.3-7.7) k/uL Lymphocytes # 2.5 (1.0-4.8) k/uL Monocytes # 0.6 (0-1.0) k/uL Eosinophils # 0.5 (0-0.7) k/uL Basophils # 0.1 (0-0.2) k/uL Sodium 138 (137-145) mmol/L Potassium 3.5 (3.5-5.1) mmol/L Chloride 98 (98-107) mmol/L Carbon Dioxide 31 H (22-30) mmol/L Anion Gap 9 mmol/L BUN 28 H (7-17) mg/dL Creatinine 0.92 (0.52-1.04) mg/dL Est GFR (CKD-EPI)AfAm 72 (>60 ml/min/1.73 sqM) Est GFR (CKD-EPI)NonAf 63 (>60 ml/min/1.73 sqM) Glucose 105 H (74-99) mg/dL Calcium 9.7 (8.4-10.2) mg/dL Phosphorus 4.8 H (2.5-4.5) mg/dL Magnesium 1.9 (1.6-2.3) mg/dL Total Bilirubin 0.4 (0.2-1.3) mg/dL AST 30 (14-36) U/L ALT 22 (4-34) U/L Alkaline Phosphatase 82 (38-126) U/L Total Protein 7.5 (6.3-8.2) g/dL Albumin 4.1 (3.5-5.0) g/dL Urine Color Light Yellow Urine Appearance Clear (Clear) Urine pH 6.5 (5.0-8.0) Ur Specific [place] 1.008 (1.001-1.035) Urine Protein Negative (Negative) Urine Glucose (UA) Negative (Negative) Urine Ketones Negative (Negative) Urine Blood Negative (Negative) Urine Nitrite Negative (Negative) Urine Bilirubin Negative (Negative) Urine Urobilinogen <2.0 (<2.0) mg/dL Ur Leukocyte Esterase Small H (Negative) Urine RBC 1 (0-5) /hpf Urine WBC 2 (0-5) /hpf Ur Squamous Epith Cells 1 (0-4) /hpf Urine Bacteria Rare H (None) /hpf - Radiology Data Radiology results: report reviewed (CT soft tissue neck is negative for acute disease), image reviewed Disposition Clinical Impression: Upper respiratory tract infection, Dehydration, Sinusitis Disposition: HOME SELF-CARE Condition: Good Instructions (If sedation given, give patient instructions): Sinusitis (ED) Prescriptions: Azithromycin [Zithromax Z-pack (6 tabs)] 0 mg PO DIRECTED #1 packet Is patient prescribed a controlled substance at d/c from ED?: No Referrals: Nolan Sanchez MD [Primary Care Provider] - 1-2 days
[2021-06-20 01:31] LABS: Basophils # (A) 0.1 k/uL (0-0.2); Basophils % (A) 1 %; Eosinophils # (A) 0.5 k/uL (0-0.7); Eosinophils % (A) 5 %; HCT 46.4 % (34.0-46.0); HGB 15.3 gm/dL (11.4-16.0); Lymphocytes # (A) 2.5 k/uL (1.0-4.8); Lymphocytes % (A) 25 %; MCH 29.1 pg (25.0-35.0); MCHC 33.1 g/dL (31.0-37.0); Mean Platelet Volume 7.1; Monocytes # (A) 0.6 k/uL (0-1.0); Monocytes % (A) 6 %; Neutrophils # (A) 5.9 k/uL (1.3-7.7); Neutrophils % (A) 60 %; Platelet Count 177 k/uL (150-450); RBC 5.27 m/uL (3.80-5.40); RDW 13.6 % (11.5-15.5); WBC 9.8 k/uL (3.8-10.6)
[2021-06-20 01:38] LABS: Appearance,Urine Clear (Clear); Bacteria,Urine Rare /hpf; Bilirubin,Urine Negative (Negative); Blood,Urine Negative (Negative); Color,Urine Light Yellow; Glucose,Urine (UA) Negative (Negative); Ketones,Urine Negative (Negative); Leukocyte Esterase,Urine Small (Negative); Nitrite,Urine Negative (Negative); PH, Urine 6.5 (5.0-8.0); Protein,Urine Negative (Negative); RBC,Urine 1 /hpf (0-5); Specific Gravity,Urine 1.008 (1.001-1.035); Squamous Epithelial Cell,Urine 1 /hpf (0-4); Urobilinogen,Urine <2.0 mg/dL (<2.0); WBC,Urine 2 /hpf (0-5)
[2021-06-20 01:44] LABS: Albumin 4.1 g/dL (3.5-5.0); Calcium 9.7 mg/dL (8.4-10.2); Magnesium 1.9 mg/dL (1.6-2.3); Phosphorus 4.8 mg/dL (2.5-4.5); Potassium 3.5 mmol/L (3.5-5.1); Total Bilirubin 0.4 mg/dL (0.2-1.3); Total Protein 7.5 g/dL (6.3-8.2)
--- NOTE | 2021-06-20 02:21 | CT ---
EXAMINATION TYPE: CT soft tissue neck w con DATE OF EXAM: 06/20/2021 COMPARISON: None HISTORY: left side swelling on neck. CT DLP: 231.8 mGycm Automated exposure control for dose reduction was used. CONTRAST: Performed with IV Contrast, patient injected with 100 mL of Isovue 300. Images obtained from the level of the thoracic inlet to the top of the frontal sinuses with IV contra st. There is arterial flow in the common internal and external carotid arteries bilaterally. There is art erial flow in the vertebral arteries. There is contrast opacification of the jugular veins. 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 Right thyroid lobe has normal size and contour. The submandibular s alivary glands are intact. The parotid glands are intact. The tongue is intact. Epiglottis is normal. Prevertebral soft tissues are intact. Tonsils and adenoid s appear normal. There is no evidence of a pharyngeal mass. Trachea appears normal. There is fairly normal aeration of the paranasal sinuses. Orbital margins are intact. There is no gabriele dence of orbital mass. There is normal aeration of the mastoid sinuses. IMPRESSION: Negative CT scan of the neck. I do not see a site of left side neck swelling.
[2021-06-20] MEDS ORDERED: AZITHROMYCIN 500 MG TAB PO STA (03:31)
[2021-06-20 04:01] VITALS: BP 136/79; PULSE 59; TEMP 97.9
== END 2021-06-20 04:00 | disposition home or self-care (01) ==
LOC: EC 23:46
DX: J06.9 Acute upper respiratory infection, unspecified (principal); E86.0 Dehydration; J01.90 Acute sinusitis, unspecified; I10 Essential (primary) hypertension; F41.9 Anxiety disorder, unspecified; Z88.1 Allergy status to other antibiotic agents; Z90.49 Acquired absence of other specified parts of digestive tract
CPT/HCPCS: 36415; 70491; 80053; 81001; 83735; 84100; 85025; 99284

== ENCOUNTER 2021-10-17 13:29 | Emergency (ER) | payer MEDICARE ==
[2021-10-17 13:42] VITALS: RESP 18
--- NOTE | 2021-10-17 14:07 | ED ---
General Adult HPI - General Chief complaint: Dizziness Stated complaint: Med Reaction Time Seen by Provider: 10/17/21 13:30 Source: patient, RN notes reviewed, old records reviewed Mode of arrival: ambulatory - History of Present Illness Initial comments: This is a 71-year-old female who presents emergency Department complaining of dizziness increased shaking and having the chills. Patient states this all started after she started taking allopurinol for gout on Friday. Patient states symptoms have been there all 3 days she states that she has not yet taken all. All today. Patient states she felt a little anxious and she does have a history of anxiety but she did not take any of her Xanax because she wanted to come the hospital be checked out. Patient denies any fevers. Patient denies any cough. Patient denies any chest pain palpitations difficulty breathing or shortness of breath. Patient denies any headache. Patient does feel dizzy and she states moving her head makes the dizziness worse. Patient describes dizziness as a floating sensation when she is walking around. Patient denies abdominal pain patient denies any vomiting or diarrhea. Patient denies any back pain. Patient denies any dysuria hematuria but states she is having urinary frequency but she normally has this because she drinks a lot of water. - Related Data Home Medications Medication Instructions Recorded Confirmed Atorvastatin [Lipitor] 20 mg PO HS@1900 07/14/16 10/17/21 Cholecalciferol [Vitamin D3] 50 mcg PO HS@1900 07/14/16 10/17/21 Levothyroxine Sodium [Synthroid] 75 mcg PO AC-[id number] 07/14/16 10/17/21 Metoprolol Tartrate [Lopressor] 25 mg PO BID@0830,1900 07/14/16 10/17/21 Ascorbic Acid [Vitamin C] 1,000 mg PO DAILY 08/05/20 10/17/21 Latanoprost [Xalatan 0.005%] 1 drop BOTH EYES HS@1900 08/05/20 10/17/21 ALPRAZolam [Xanax] 0.25 mg PO DIRECTED PRN 10/17/21 10/17/21 Albuterol Sulfate [Proair Hfa] 2 puff INHALATION RT-QID PRN 10/17/21 10/17/21 Allopurinol [Zyloprim] 100 mg PO DAILY@1500 10/17/21 10/17/21 Bumetanide [Bumex] 1 mg PO HS@1900 10/17/21 10/17/21 Potassium Chloride [Klor-Con 20] 20 meq PO HS@1900 10/17/21 10/17/21 Topiramate 50 mg PO HS@1900 10/17/21 10/17/21 Triamterene-Hctz 37.5-25Mg 1 tab PO HS@1900 10/17/21 10/17/21 [Maxzide 37.5-25] Allergies Allergy/AdvReac Type Severity Reaction Status Date / Time amoxicillin Allergy Rash/Hives Verified 10/17/21 13:42 atenolol [From Tenormin] Allergy INTENSIFIES Verified 10/17/21 13:42 ASTHMA levofloxacin [From Levaquin] Allergy INTENSIFIES Verified 10/17/21 13:42 SOUNDS/INSOMNIA Review of Systems ROS Statement: Those systems with pertinent positive or pertinent negative responses have been documented in the HPI. ROS Other: All systems not noted in ROS Statement are negative. Past Medical History Past Medical History: Hypertension Additional Past Medical History / Comment(s): hand tremor, cellulitis, GOUT(right hand) History of Any Multi-Drug Resistant Organisms: None Reported Past Surgical History: Cholecystectomy Additional Past Surgical History / Comment(s): knee replacement bilateral Past Psychological History: Anxiety Smoking Status: Never smoker Past Alcohol Use History: None Reported Past Drug Use History: None Reported General Exam - General Exam Comments Initial Comments: GENERAL: Patient is well-developed and well-nourished. Patient is nontoxic and well- hydrated and is in mild distress. ENT: Neck is soft and supple. No significant lymphadenopathy is noted. Oropharynx is clear. Moist mucous membranes. Neck has full range of motion without eliciting any pain. EYES: The sclera were anicteric and conjunctiva were pink and moist. Extraocular movements were intact and pupils were equal round and reactive to light. Eyelids were unremarkable. PULMONARY: Unlabored respirations. Good breath sounds bilaterally. No audible rales rhonchi or wheezing was noted. CARDIOVASCULAR: There is a regular rate and rhythm without any murmurs gallops or rubs. ABDOMEN: Soft and nontender with normal bowel sounds. SKIN: Skin is clear with no lesions or rashes and otherwise unremarkable. NEUROLOGIC: Patient is alert and oriented x3. Cranial nerves II through XII are grossly intact. Motor and sensory are also intact. Normal speech, volume and content. Symmetrical smile. Patient has slight from her both of her arms. Patient states this is normal however MUSCULOSKELETAL: Normal extremities with adequate strength and full range of motion. LYMPHATICS: No significant lymphadenopathy is noted PSYCHIATRIC: Patient seems mildly anxious Course Vital Signs 10/17/21 13:31 Temperature 97.4 F L Pulse Rate 78 Respiratory 18 Rate Blood Pressure 134/73 O2 Sat by Pulse 100 Oximetry Medical Decision Making - Medical Decision Making EKG shows sinus rhythm at 61 bpm AL interval 291 QRS is 94 QT interval 376 QTC is 379. Patient's EKG shows no ST segment elevation or depression. CT of the brain shows no acute abnormality. I spoke with Dr. Michele Bautista wanted to see the patient as an outpatient on Friday. - Lab Data Result diagrams: 10/17/21 15:19 10/17/21 15:19 Lab Results 10/17/21 10/17/21 10/17/21 Range/Units 15:19 15:19 15:19 WBC 8.2 (3.8-10.6) k/uL RBC 5.36 (3.80-5.40) m/uL Hgb 16.2 H (11.4-16.0) gm/dL Hct 47.0 H (34.0-46.0) % MCV 87.7 (80.0-100.0) fL MCH 30.2 (25.0-35.0) pg MCHC 34.4 (31.0-37.0) g/dL RDW 13.9 (11.5-15.5) % Plt Count 202 (150-450) k/uL MPV 7.2 Neutrophils % 53 % Lymphocytes % 29 % Monocytes % 8 % Eosinophils % 5 % Basophils % 1 % Neutrophils # 4.4 (1.3-7.7) k/uL Lymphocytes # 2.4 (1.0-4.8) k/uL Monocytes # 0.7 (0-1.0) k/uL Eosinophils # 0.4 (0-0.7) k/uL Basophils # 0.1 (0-0.2) k/uL PT 10.9 (9.0-12.0) sec INR 1.0 (<1.2) APTT 24.2 (22.0-30.0) sec Sodium 135 L (137-145) mmol/L Potassium 3.3 L (3.5-5.1) mmol/L Chloride 95 L (98-107) mmol/L Carbon Dioxide 31 H (22-30) mmol/L Anion Gap 9 mmol/L BUN 16 (7-17) mg/dL Creatinine 0.71 (0.52-1.04) mg/dL Est GFR (CKD-EPI)AfAm >90 (>60 ml/min/1.73 sqM) Est GFR (CKD-EPI)NonAf 85 (>60 ml/min/1.73 sqM) Glucose 105 H (74-99) mg/dL Calcium 9.4 (8.4-10.2) mg/dL Magnesium 2.3 (1.6-2.3) mg/dL Total Bilirubin 0.7 (0.2-1.3) mg/dL AST 44 H (14-36) U/L ALT 30 (4-34) U/L Alkaline Phosphatase 91 (38-126) U/L Troponin I (0.000-0.034) ng/mL Total Protein 8.1 (6.3-8.2) g/dL Albumin 4.4 (3.5-5.0) g/dL Urine Color Urine Appearance (Clear) Urine pH (5.0-8.0) Ur Specific [place] (1.001-1.035) Urine Protein (Negative) Urine Glucose (UA) (Negative) Urine Ketones (Negative) Urine Blood (Negative) Urine Nitrite (Negative) Urine Bilirubin (Negative) Urine Urobilinogen (<2.0) mg/dL Ur Leukocyte Esterase (Negative) 10/17/21 10/17/21 Range/Units 15:19 16:26 WBC (3.8-10.6) k/uL RBC (3.80-5.40) m/uL Hgb (11.4-16.0) gm/dL Hct (34.0-46.0) % MCV (80.0-100.0) fL MCH (25.0-35.0) pg MCHC (31.0-37.0) g/dL RDW (11.5-15.5) % Plt Count (150-450) k/uL MPV Neutrophils % % Lymphocytes % % Monocytes % % Eosinophils % % Basophils % % Neutrophils # (1.3-7.7) k/uL Lymphocytes # (1.0-4.8) k/uL Monocytes # (0-1.0) k/uL Eosinophils # (0-0.7) k/uL Basophils # (0-0.2) k/uL PT (9.0-12.0) sec INR (<1.2) APTT (22.0-30.0) sec Sodium (137-145) mmol/L Potassium (3.5-5.1) mmol/L Chloride (98-107) mmol/L Carbon Dioxide (22-30) mmol/L Anion Gap mmol/L BUN (7-17) mg/dL Creatinine (0.52-1.04) mg/dL Est GFR (CKD-EPI)AfAm (>60 ml/min/1.73 sqM) Est GFR (CKD-EPI)NonAf (>60 ml/min/1.73 sqM) Glucose (74-99) mg/dL Calcium (8.4-10.2) mg/dL Magnesium (1.6-2.3) mg/dL Total Bilirubin (0.2-1.3) mg/dL AST (14-36) U/L ALT (4-34) U/L Alkaline Phosphatase (38-126) U/L Troponin I <0.012 (0.000-0.034) ng/mL Total Protein (6.3-8.2) g/dL Albumin (3.5-5.0) g/dL Urine Color Colorless Urine Appearance Clear (Clear) Urine pH 6.5 (5.0-8.0) Ur Specific [place] 1.002 (1.001-1.035) Urine Protein Negative (Negative) Urine Glucose (UA) Negative (Negative) Urine Ketones Negative (Negative) Urine Blood Negative (Negative) Urine Nitrite Negative (Negative) Urine Bilirubin Negative (Negative) Urine Urobilinogen <2.0 (<2.0) mg/dL Ur Leukocyte Esterase Negative (Negative) Disposition Clinical Impression: Adverse drug reaction Disposition: HOME SELF-CARE Condition: Good Additional Instructions: Patient stop her allpurinol Patient should follow-up with on Friday. Is patient prescribed a controlled substance at d/c from ED?: No Referrals: Nik Bautista MD [Primary Care Provider] - 1-2 days Time of Disposition: 17:22
--- NOTE | 2021-10-17 15:32 | CT ---
EXAMINATION TYPE: CT brain wo con DATE OF EXAM: 10/17/2021 COMPARISON: CT dated 11/11/2011 HISTORY: dizziness, tremors CT DLP: 1068.4 mGycm Automated exposure control for dose reduction was used. TECHNIQUE: CT scan of the brain is performed without IV contrast administration. FINDINGS: Generalized mild brain volume loss changes, likely age-related. No acute intracranial hemorrhage. No gross acute cortical infarct. No midline shift, herniation or ventriculomegaly. Unremarkable suero-white matter differentiation, basal cisterns, sella and CP angles. No gross space-o ccupying lesion, vasogenic edema or mass effect. Unremarkable orbits. Clear visualized paranasal sinuses and mastoid air cells. Unremarkable calvarial bones. IMPRESSION: No acute intracranial abnormality or gross space-occupying lesion by this nonenhanced CT scan.
[2021-10-17 15:38] LABS: ALT 30 U/L (4-34); AST 44 U/L (14-36); African American GFR (CKD) >90 (>60 ml/min/1.73 sqM); Albumin 4.4 g/dL (3.5-5.0); Alkaline Phosphatase 91 U/L (38-126); Anion Gap 9 mmol/L; Blood Urea Nitrogen 16 mg/dL (7-17); Calcium 9.4 mg/dL (8.4-10.2); Carbon Dioxide 31 mmol/L (22-30); Chloride 95 mmol/L (98-107); Glucose 105 mg/dL (74-99); Magnesium 2.3 mg/dL (1.6-2.3); Non-African American GFR(CKD) 85 (>60 ml/min/1.73 sqM); Potassium 3.3 mmol/L (3.5-5.1); Sodium 135 mmol/L (137-145); Total Bilirubin 0.7 mg/dL (0.2-1.3); Total Protein 8.1 g/dL (6.3-8.2)
[2021-10-17 15:42] LABS: Partial Thromboplastin Time 24.2 sec (22.0-30.0); Prothrombin Time 10.9 sec (9.0-12.0)
[2021-10-17 15:48] LABS: Basophils # (A) 0.1 k/uL (0-0.2); Basophils % (A) 1 %; Eosinophils # (A) 0.4 k/uL (0-0.7); Eosinophils % (A) 5 %; HGB 16.2 gm/dL (11.4-16.0); Lymphocytes # (A) 2.4 k/uL (1.0-4.8); Lymphocytes % (A) 29 %; MCH 30.2 pg (25.0-35.0); MCHC 34.4 g/dL (31.0-37.0); MCV 87.7 fL (80.0-100.0); Mean Platelet Volume 7.2; Monocytes # (A) 0.7 k/uL (0-1.0); Monocytes % (A) 8 %; Neutrophils # (A) 4.4 k/uL (1.3-7.7); Neutrophils % (A) 53 %; Platelet Count 202 k/uL (150-450); RBC 5.36 m/uL (3.80-5.40); RDW 13.9 % (11.5-15.5); WBC 8.2 k/uL (3.8-10.6)
[2021-10-17 16:55] LABS: Appearance,Urine Clear (Clear); Bilirubin,Urine Negative (Negative); Blood,Urine Negative (Negative); Color,Urine Colorless; Glucose,Urine (UA) Negative (Negative); Ketones,Urine Negative (Negative); Leukocyte Esterase,Urine Negative (Negative); Nitrite,Urine Negative (Negative); PH, Urine 6.5 (5.0-8.0); Protein,Urine Negative (Negative); Specific Gravity,Urine 1.002 (1.001-1.035); Urobilinogen,Urine <2.0 mg/dL (<2.0)
[2021-10-17 17:55] VITALS: BP 128/71; PULSE 79; TEMP 97.7
== END 2021-10-17 17:55 | disposition home or self-care (01) ==
LOC: EC 13:29
DX: R42 Dizziness and giddiness (principal); T50.905A Adverse effect of unspecified drugs, medicaments and biological substances, initial encounter; I10 Essential (primary) hypertension; F41.9 Anxiety disorder, unspecified; Z88.1 Allergy status to other antibiotic agents; Z90.49 Acquired absence of other specified parts of digestive tract; Z96.653 Presence of artificial knee joint, bilateral
CPT/HCPCS: 36415; 70450; 80053; 81003; 83735; 84484; 85025; 85610; 85730; 93005; 99284

== ENCOUNTER 2022-01-20 13:38 | Emergency (ER) | payer MEDICARE ==
[2022-01-20 13:44] VITALS: RESP 16
--- NOTE | 2022-01-20 14:09 | ED ---
General Adult HPI - General Chief complaint: Recheck/Abnormal Lab/Rx Stated complaint: Abd labs Time Seen by Provider: 01/20/22 13:45 Source: patient Mode of arrival: wheelchair Limitations: no limitations - History of Present Illness Initial comments: Dictation was produced using [employer] dictation software. please excuse any grammatical, word or spelling errors. Chief Complaint: 71-year-old female presents to the emergency department for concerns of hypokalemia History of Present Illness: Patient is 71-year-old female she has past medical history of hypertension, gout cellulitis. She states that she is here today could she strongly believes that her potassium level is low. She states that several weeks ago she had her potassium checked in her primary care physician's office and was found to be 2.9. Patient had her medications changed recently by her primary care doctor to prevent hypokalemia. Since then she has gained 10 pounds per denies any chest pain or shortness of breath. She does feel weak. Patient feels that whenever she expresses weaknesses that her potassium is low. Patient has no other complaints at this time. The ROS documented in this emergency department record has been reviewed and confirmed by me. Those systems with pertinent positive or negative responses have been documented in the HPI. All other systems are other negative and/or noncontributory. PHYSICAL EXAM: General Impression: Alert and oriented x3, not in acute distress HEENT: Normocephalic atraumatic, extra-ocular movements intact, pupils equal and reactive to light bilaterally, mucous membranes moist. Cardiovascular: Heart regular rate and rhythm Chest: Able to complete full sentences, no retractions, no tachypnea Abdomen: abdomen soft, non-tender, non-distended, no organomegaly Musculoskeletal: Pulses present and equal in all extremities, no peripheral edema Motor: no focal deficits noted Neurological: CN II-XII grossly intact, no focal motor or sensory deficits noted Skin: Intact with no visualized rashes Psych: Normal affect and mood ED course: 71-year-old well-appearing female presents emergency department for concerns of hypokalemia vital signs upon arrival are within acceptable limits. EKG does not show any critical findings. EKG interpretation: Ventricular rate 70, sinus rhythm,. 180, QS 12, QTc 433. No WI prolongation, no QTC prolongation, no ST or T-wave changes noted. EKG compared to 10/17/2021 showing no changes. Overall, this EKG is unremarkable Laboratory evaluation obtained. CBC and metabolic panel is unremarkable. Potassium magnesium are normal. Renal function is supple. No other abnormalities. Patient reevaluated at bedside to 40 5 PM found to be stable medical condition. Patient is well-appearing and will be discharged advised follow-up with primary care doctor. - Related Data Home Medications Medication Instructions Recorded Confirmed Atorvastatin [Lipitor] 20 mg PO HS@1900 07/14/16 10/17/21 Cholecalciferol [Vitamin D3] 50 mcg PO HS@1900 07/14/16 10/17/21 Levothyroxine Sodium [Synthroid] 75 mcg PO AC-BRKFST 07/14/16 10/17/21 Metoprolol Tartrate [Lopressor] 25 mg PO BID@0830,1900 07/14/16 10/17/21 Ascorbic Acid [Vitamin C] 1,000 mg PO DAILY 08/05/20 10/17/21 Latanoprost [Xalatan 0.005%] 1 drop BOTH EYES HS@1900 08/05/20 10/17/21 ALPRAZolam [Xanax] 0.25 mg PO DIRECTED PRN 10/17/21 10/17/21 Albuterol Sulfate [Proair Hfa] 2 puff INHALATION RT-QID PRN 10/17/21 10/17/21 Allopurinol [Zyloprim] 100 mg PO DAILY@1500 10/17/21 10/17/21 Bumetanide [Bumex] 1 mg PO HS@1900 10/17/21 10/17/21 Potassium Chloride [Klor-Con 20] 20 meq PO HS@1900 10/17/21 10/17/21 Topiramate 50 mg PO HS@1900 10/17/21 10/17/21 Triamterene-Hctz 37.5-25Mg 1 tab PO HS@1900 10/17/21 10/17/21 [Maxzide 37.5-25] Allergies Allergy/AdvReac Type Severity Reaction Status Date / Time amoxicillin Allergy Rash/Hives Verified 01/20/22 13:39 atenolol [From Tenormin] Allergy INTENSIFIES Verified 01/20/22 13:39 ASTHMA levofloxacin [From Levaquin] Allergy INTENSIFIES Verified 01/20/22 13:39 SOUNDS/INSOMNIA Review of Systems ROS Statement: Those systems with pertinent positive or pertinent negative responses have been documented in the HPI. ROS Other: All systems not noted in ROS Statement are negative. Past Medical History Past Medical History: Hypertension Additional Past Medical History / Comment(s): hand tremor, cellulitis, GOUT(right hand) History of Any Multi-Drug Resistant Organisms: None Reported Past Surgical History: Cholecystectomy Additional Past Surgical History / Comment(s): knee replacement bilateral Past Psychological History: Anxiety Smoking Status: Never smoker Past Alcohol Use History: None Reported Past Drug Use History: None Reported General Exam Limitations: no limitations Course Vital Signs 01/20/22 13:39 Temperature 97 F L Pulse Rate 77 Respiratory 16 Rate Blood Pressure 148/71 O2 Sat by Pulse 99 Oximetry Medical Decision Making - Lab Data Result diagrams: 01/20/22 14:09 01/20/22 14:09 Lab Results 01/20/22 01/20/22 Range/Units 14:09 14:09 WBC 8.7 (3.8-10.6) k/uL RBC 5.11 (3.80-5.40) m/uL Hgb 15.1 (11.4-16.0) gm/dL Hct 45.3 (34.0-46.0) % MCV 88.6 (80.0-100.0) fL MCH 29.5 (25.0-35.0) pg MCHC 33.3 (31.0-37.0) g/dL RDW 14.0 (11.5-15.5) % Plt Count 189 (150-450) k/uL MPV 7.6 Neutrophils % 50 % Lymphocytes % 34 % Monocytes % 7 % Eosinophils % 5 % Basophils % 1 % Neutrophils # 4.3 (1.3-7.7) k/uL Lymphocytes # 2.9 (1.0-4.8) k/uL Monocytes # 0.6 (0-1.0) k/uL Eosinophils # 0.4 (0-0.7) k/uL Basophils # 0.1 (0-0.2) k/uL Sodium 138 (137-145) mmol/L Potassium 4.0 (3.5-5.1) mmol/L Chloride 101 (98-107) mmol/L Carbon Dioxide 28 (22-30) mmol/L Anion Gap 9 mmol/L BUN 19 H (7-17) mg/dL Creatinine 0.71 (0.52-1.04) mg/dL Est GFR (CKD-EPI)AfAm >90 (>60 ml/min/1.73 sqM) Est GFR (CKD-EPI)NonAf 85 (>60 ml/min/1.73 sqM) Glucose 99 (74-99) mg/dL Calcium 8.6 (8.4-10.2) mg/dL Magnesium 2.2 (1.6-2.3) mg/dL Disposition Clinical Impression: Weakness Disposition: HOME SELF-CARE Condition: Good Instructions (If sedation given, give patient instructions): Potassium Content of Foods List (ED) Is patient prescribed a controlled substance at d/c from ED?: No Referrals: Nik Bautista MD [Primary Care Provider] - 1-2 days Time of Disposition: 14:45
[2022-01-20 14:29] LABS: African American GFR (CKD) >90 (>60 ml/min/1.73 sqM); Anion Gap 9 mmol/L; Blood Urea Nitrogen 19 mg/dL (7-17); Calcium 8.6 mg/dL (8.4-10.2); Carbon Dioxide 28 mmol/L (22-30); Chloride 101 mmol/L (98-107); Glucose 99 mg/dL (74-99); Non-African American GFR(CKD) 85 (>60 ml/min/1.73 sqM); Sodium 138 mmol/L (137-145)
[2022-01-20 14:30] LABS: Basophils # (A) 0.1 k/uL (0-0.2); Basophils % (A) 1 %; Eosinophils # (A) 0.4 k/uL (0-0.7); Eosinophils % (A) 5 %; HCT 45.3 % (34.0-46.0); HGB 15.1 gm/dL (11.4-16.0); Lymphocytes # (A) 2.9 k/uL (1.0-4.8); Lymphocytes % (A) 34 %; MCH 29.5 pg (25.0-35.0); MCHC 33.3 g/dL (31.0-37.0); MCV 88.6 fL (80.0-100.0); Mean Platelet Volume 7.6; Monocytes # (A) 0.6 k/uL (0-1.0); Monocytes % (A) 7 %; Neutrophils # (A) 4.3 k/uL (1.3-7.7); Neutrophils % (A) 50 %; Platelet Count 189 k/uL (150-450); RBC 5.11 m/uL (3.80-5.40); WBC 8.7 k/uL (3.8-10.6)
[2022-01-20 14:31] LABS: Magnesium 2.2 mg/dL (1.6-2.3)
[2022-01-20 14:52] VITALS: BP 138/79; PULSE 78; TEMP 98.4
== END 2022-01-20 14:51 | disposition home or self-care (01) ==
LOC: EC 13:38
DX: R53.1 Weakness (principal); R79.89 Other specified abnormal findings of blood chemistry; I10 Essential (primary) hypertension; M10.9 Gout, unspecified; Z88.1 Allergy status to other antibiotic agents; Z88.8 Allergy status to other drugs, medicaments and biological substances; Z88.0 Allergy status to penicillin; Z79.899 Other long term (current) drug therapy
CPT/HCPCS: 36415; 80048; 83735; 85025; 93005; 99285

== ENCOUNTER → 2022-02-06 | Outpatient (CLI) | payer MEDICARE ==
--- NOTE | 2022-02-06 16:02 | BD ---
EXAMINATION TYPE: Axial Bone Density DATE OF EXAM: 02/06/2022 COMPARISON: NONE CLINICAL HISTORY: 71 years year old Female. ICD-10 CODE: M81.0 OSTEOPOROSIS Height: 5 FT 5 1/4 IN Weight: 288 FRAX RISK QUESTIONS: Alcohol (3 or more units per day): NO Family History (Parent hip fracture): YES Glucocorticoids (More than 3mos): NO (Ex: prednisone, prednisolone, methylprednisolone, dexamethasone, and hydrocortisone). History of Fracture in Adulthood: YES Secondary Osteoporosis: NO 1. Type 1 Diabetes: 2. Hyperthyroidism: NO 3. Menopause before 45: NO 4. Malnutrition: NO 5. Chronic liver disease: NO Rheumatoid Arthritis: NO Current Tobacco Use: NO RISK FACTORS HISTORY OF: Surgery to Spine/Hip(right/left)/Wrist (right/left): NO Family History of Osteoporosis: YES Active: YES Diet low in dairy products/other sources of calcium: NO Postmenopausal woman: YES Take estrogen and/or progesterone medications: NOT NOW Lost more than 2 inches in height since high school: YES Frequent falls: NO Poor Health: FAIR Hyperparathyroidism: NO Adrenal Insufficiency: NO MEDICATIONS: Thyroid Medications: YES Which medication: LEVOTHYROXINE How Long: APPROX 8-10 YEARS Additional Medications: LEVOTHYROXINE, KLOR-CON, VIT D, VIT C, BUMETANIDE, METOPROLOL, TOPIRAMATE, A TORVASTATIN, TRIAMTERENE, LATANOPROST Additional History: GANGLION CYST RT WRIST REMOVED, CERV ABLATION EXAM MEASUREMENTS: Bone mineral densitometry was performed using the [employer] System. Bone mineral density as measured about the Lumbar spine is: ----- L1-L4(G/cm2): 1.361 T Score Values are as follows: ----- L1: 1.6 ----- L2: 1.6 ----- L3: 2.6 ----- L4: 0.4 ----- L1-L4: 1.5 Bone mineral density has: INCREASED 5.1 % since study of: 2019 Bone mineral density about the R hip (g/cm2): 1.025 Bone mineral density about the L hip (g/cm2): 1.035 T Score values are as follows: -----R Neck: -0.1 -----L Neck: 0.0 -----R Total: 0.0 -----L Total: 0.9 Bone mineral density has: DECREASED -0.7 % since study of: 2019 FRAX%s: The graph provided illustrates a 13.6 % chance for a major osteoporotic fx and a 2.1 % chance for the hips probability for fx in 10 years time. IMPRESSION: Normal (Values between +1 and -1 indicate normal bone mass). Consider repeating this study in 5 year s or sooner if there is some new clinical indication. NOTE: T-SCORE=SD OF THE YOUNG ADULT MEAN.
--- NOTE | 2022-02-10 21:51 | MM ---
Reason for Exam: Screening (asymptomatic). Last mammogram was performed 1 year(s) and 1 month(s) ago. Patient History: Menarche at age 10. First Full-Term at age 24. Postmenopausal. Estrogen for 2 years from age 50 until age 52. Risk Values: Bibi 5 year model risk: 2.0%. NCI Lifetime model risk: 4.8%. Prior Study Comparison: 04/26/2019 Bilateral Screening Mammogram, [facility]. 05/06/2019 Right Diagnostic Mammogram, [facility]. 12/22/2020 Bilateral Screening Mammogram, [facility]. Tissue Density: The breast tissue is heterogeneously dense. This may lower the sensitivity of mammography. Findings: Analyzed By CAD. There is chronic nodularity on both sides. Benign oil cyst calcifications bilaterally. Areas of asymmetric density were present previously as well. No significant change from prior exams. Overall Assessment: Benign, BI-RAD 2 Management: Screening Mammogram of both breasts in 1 year. 1. The patient to continue monthly breast exams. 2. A clinical breast exam by your physician is recommended on an annual basis. 3. This exam should not preclude additional follow-up of suspicious palpable abnormalities. Electronically signed and approved by: Brenda Parmar M.D. Radiologist
== END | disposition home or self-care (01) ==
LOC: RADMAMWWP 14:30
PROVIDERS: ATTEND Internal Medicine
DX: Z12.31 Encounter for screening mammogram for malignant neoplasm of breast (principal); Z78.0 Asymptomatic menopausal state
CPT/HCPCS: 77063; 77067; 77080

== ENCOUNTER 2022-05-03 10:29 | Day surgery (SDC) | payer MEDICARE ==
[2022-05-02 09:58] VITALS: BMI 46.0
[~2022-05-03 10:29] MED LIST: LIDOCAINE 1% (10MG/ML) FOR IV START INTRADERMA PRN
[2022-05-03] MEDS: LACTATED RINGERS 1,000 ML IV SCH ×2 (11:06→11:40)
[2022-05-03] MEDS ORDERED: ONDANSETRON 4 MG/2 ML VIAL ONE (11:09)
[2022-05-03 11:46] VITALS: TEMP 97
[2022-05-03] MEDS ORDERED: MIDAZOLAM 2 MG/2 ML VIAL ONE (12:38)
[2022-05-03] MEDS ORDERED: fentaNYL (PF) 50 MCG/ML 2 ML AMP ONE (12:38)
[2022-05-03] MEDS ORDERED: PROPOFOL 10 MG/ML 20 ML VIAL IV ONE (12:38)
[2022-05-03] MEDS ORDERED: LIDOCAINE 2% INJ 20 MG/ML (2 ML VIAL) ONE (12:38)
--- NOTE | 2022-05-03 13:02 | P.PCN ---
Date of Procedure: 05/03/22 Procedure(s) Performed: BRIEF HISTORY: Patient is a 71-year-old pleasant female scheduled for an elective colonoscopy as a part of screening for colorectal neoplasia. Her last colonoscopy was 11 years ago. PROCEDURE PERFORMED: Colonoscop with snare polypectomy and Endo Clip placement y. PREOPERATIVE DIAGNOSIS: Screening for colon cancer. IV sedation per Anesthesia. PROCEDURE: After informed consent was obtained, the patient, was brought into the endoscopy unit. IV sedation was administered by Anesthesia under continuous monitoring. Digital rectal examination was normal. Initially the Olympus CF-160 flexible video colonoscope was then inserted in the rectum, gradually advanced into the cecum without any difficulty. Careful examination was performed as the scope was gradually being withdrawn. Ileocecal valve and the appendiceal orifice were visualized and appeared normal. Prep was excellent. Mucosa of the cecum had a 3 cm polyp at the base that was removed by piecemeal snare polypectomy and complete polypectomy was accomplished. Following this Endo Clip was placed to prevent post-polypectomy bleeding. Mucosa of the, ascending colon, transverse colon, descending colon, sigmoid colon, and rectum appeared normal. Scattered left sided diverticulosis seen. Retroflexion was performed in the rectum and no lesions were seen. The patient tolerated the procedure well. IMPRESSION: 3 cm broad-based cecal polyp status post piecemeal snare polyp rectum he followed by Endo Clip placement Left-sided diverticulosis. RECOMMENDATIONS: Findings of this examination were discussed with the patient as well as a family. She was advised to follow with the biopsy results and if the biopsy is adenoma she can have a repeat colonoscopy in 3 years.
[2022-05-03 13:26] VITALS: BP 126/58; PULSE 50; RESP 20
== END 2022-05-03 13:50 | disposition home or self-care (01) ==
LOC: ORWHC2ENDO 10:29
PROVIDERS: ATTEND Internal Medicine Gastroenterology
DX: Z12.11 Encounter for screening for malignant neoplasm of colon (principal); D12.0 Benign neoplasm of cecum; K57.30 Diverticulosis of large intestine without perforation or abscess without bleeding; I10 Essential (primary) hypertension; E78.5 Hyperlipidemia, unspecified; J44.9 Chronic obstructive pulmonary disease, unspecified; E07.9 Disorder of thyroid, unspecified; F41.9 Anxiety disorder, unspecified; Z88.0 Allergy status to penicillin; Z79.890 Hormone replacement therapy; Z79.899 Other long term (current) drug therapy
CPT/HCPCS: 88305; 45385; J2250; J2405; J3010; J2704; J2001; 45382

== ENCOUNTER 2022-06-06 19:42 | Inpatient (IN) | payer MEDICARE ==
[2022-06-06] MEDS ORDERED: SODIUM CHLORIDE 0.9% 1,000 ML IV STA (21:37)
[2022-06-06] MEDS ORDERED: MECLIZINE 12.5 MG TAB PO STA (21:37)
[2022-06-06 22:07] LABS: Basophils # (A) 0.1 k/uL (0-0.2); Basophils % (A) 1 %; Eosinophils # (A) 0.6 k/uL (0-0.7); Eosinophils % (A) 5 %; HCT 46.5 % (34.0-46.0); HGB 15.5 gm/dL (11.4-16.0); Lymphocytes # (A) 2.3 k/uL (1.0-4.8); Lymphocytes % (A) 22 %; MCHC 33.4 g/dL (31.0-37.0); MCV 86.8 fL (80.0-100.0); Mean Platelet Volume 7.5; Monocytes # (A) 0.7 k/uL (0-1.0); Monocytes % (A) 7 %; Neutrophils # (A) 6.7 k/uL (1.3-7.7); Neutrophils % (A) 64 %; Platelet Count 198 k/uL (150-450); RBC 5.35 m/uL (3.80-5.40); RDW 13.6 % (11.5-15.5); WBC 10.6 k/uL (3.8-10.6)
--- NOTE | 2022-06-06 22:13 | ED ---
Dizziness HPI - General Chief Complaint: Dizziness Stated Complaint: High BP Time Seen by Provider: 06/06/22 21:21 Source: patient Mode of arrival: wheelchair Limitations: no limitations - History of Present Illness Initial Comments: Patient is a 71-year-old female presenting with chief complaint of elevated blood pressure. Patient was at the dentist today and was found have systolic blood pressure of 185 systolic. Later on when she rechecked this at home blood pressure was 186 systolic. Patient states that she was experiencing dizziness at this time, she has had intermittent dizziness for the last 3 days. She denies any chest pain or difficulty breathing. No palpitations or weakness. No fever or chills. She admits to some congestion. No cough. - Related Data Home Medications Medication Instructions Recorded Confirmed Atorvastatin [Lipitor] 20 mg PO HS@1900 07/14/16 05/02/22 Cholecalciferol [Vitamin D3] 50 mcg PO HS@1900 07/14/16 05/02/22 Levothyroxine Sodium [Synthroid] 75 mcg PO AC-BRKFST 07/14/16 05/02/22 Metoprolol Tartrate [Lopressor] 25 mg PO BID@0830,1900 07/14/16 05/02/22 Ascorbic Acid [Vitamin C] 1,000 mg PO DAILY 08/05/20 05/02/22 Latanoprost [Xalatan 0.005%] 1 drop BOTH EYES HS@1900 08/05/20 05/02/22 ALPRAZolam [Xanax] 0.25 mg PO DIRECTED PRN 10/17/21 05/02/22 Bumetanide [Bumex] 1 mg PO HS@1900 10/17/21 05/02/22 Potassium Chloride [Klor-Con 20] 10 meq PO BID 10/17/21 05/02/22 Topiramate 50 mg PO HS@1900 10/17/21 05/02/22 Triamterene-Hctz 37.5-25Mg 1 tab PO HS@1900 10/17/21 05/02/22 [Maxzide 37.5-25] Allergies Allergy/AdvReac Type Severity Reaction Status Date / Time amoxicillin Allergy Rash/Hives Verified 05/02/22 09:40 atenolol [From Tenormin] Allergy INTENSIFIES Verified 05/02/22 09:40 ASTHMA levofloxacin [From Levaquin] Allergy INTENSIFIES Verified 05/02/22 09:40 SOUNDS/INSOMNIA Review of Systems ROS Statement: Those systems with pertinent positive or pertinent negative responses have been documented in the HPI. ROS Other: All systems not noted in ROS Statement are negative. Past Medical History Past Medical History: Hypertension Additional Past Medical History / Comment(s): tested positive for Covid in February 2022,tested positive for covid in Aug 2021,hand tremors, cellulitis lt leg approx 12 yrs ago, GOUT,hemorrhoids,anal fistual back 5th grade History of Any Multi-Drug Resistant Organisms: None Reported Past Surgical History: Cholecystectomy Additional Past Surgical History / Comment(s): knee replacement bilateral ,d&c,ganglion cyst removed rt wrist,pain clinic procedures Past Anesthesia/Blood Transfusion Reactions: No Reported Reaction, Family History of Problems w/ Anesthesia Additional Past Anesthesia/Blood Transfusion Reaction / Comment(s): woke up during knee surgery. son has hard time coming out of anesthesia Past Psychological History: Anxiety Smoking Status: Never smoker - Past Family History Mother Family Medical History: Cancer, Deep Vein Thrombosis (DVT) Additional Family Medical History / Comment(s): lung-[place] fever General Exam Limitations: no limitations General appearance: alert, in no apparent distress Head exam: Present: atraumatic, normocephalic, normal inspection Eye exam: Present: normal appearance, PERRL, EOMI. Absent: scleral icterus, conjunctival injection, periorbital swelling Neck exam: Present: normal inspection, full ROM Respiratory exam: Present: normal lung sounds bilaterally. Absent: respiratory distress, wheezes, rales, rhonchi, stridor Cardiovascular Exam: Present: regular rate, normal rhythm, normal heart sounds. Absent: systolic murmur, diastolic murmur, rubs, gallop, clicks Extremities exam: Present: normal inspection Neurological exam: Present: alert, oriented X3, CN II-XII intact Psychiatric exam: Present: normal affect, normal mood Skin exam: Present: warm, dry, intact, normal color. Absent: rash Course Vital Signs 06/06/22 06/06/22 06/07/22 20:20 21:33 01:52 Temperature 97.5 F L Pulse Rate 77 64 68 Respiratory 16 18 18 Rate Blood Pressure 161/75 146/68 138/66 O2 Sat by Pulse 99 98 96 Oximetry Medical Decision Making - Medical Decision Making Patient is a 71-year-old female presenting for evaluation of elevated blood pressure. Patient states on 2 occasions today her blood pressure was in the 180s systolic. Patient reports intermittent dizziness that started ongoing since Friday, otherwise she is asymptomatic. Physical examination is unremarkable. Lab work is remarkable for CHE, creatinine 1.63 and BUN 26. Remainder of workup is negative. Patient will be admitted for CHE e and fluid resuscitation. I discussed this case with her PCP Dr. Bautista, he accepted admission. I discussed this case with my attending Dr. Osborne - Lab Data Result diagrams: 06/06/22 21:52 06/06/22 21:52 Lab Results 06/06/22 06/06/22 06/06/22 Range/Units 21:50 21:52 21:52 WBC 10.6 (3.8-10.6) k/uL RBC 5.35 (3.80-5.40) m/uL Hgb 15.5 (11.4-16.0) gm/dL Hct 46.5 H (34.0-46.0) % MCV 86.8 (80.0-100.0) fL MCH 29.0 (25.0-35.0) pg MCHC 33.4 (31.0-37.0) g/dL RDW 13.6 (11.5-15.5) % Plt Count 198 (150-450) k/uL MPV 7.5 Neutrophils % 64 % Lymphocytes % 22 % Monocytes % 7 % Eosinophils % 5 % Basophils % 1 % Neutrophils # 6.7 (1.3-7.7) k/uL Lymphocytes # 2.3 (1.0-4.8) k/uL Monocytes # 0.7 (0-1.0) k/uL Eosinophils # 0.6 (0-0.7) k/uL Basophils # 0.1 (0-0.2) k/uL PT 11.0 (9.0-12.0) sec INR 1.0 (<1.2) Sodium (137-145) mmol/L Potassium (3.5-5.1) mmol/L Chloride (98-107) mmol/L Carbon Dioxide (22-30) mmol/L Anion Gap mmol/L BUN (7-17) mg/dL Creatinine (0.52-1.04) mg/dL Est GFR (CKD-EPI)AfAm (>60 ml/min/1.73 sqM) Est GFR (CKD-EPI)NonAf (>60 ml/min/1.73 sqM) Glucose (74-99) mg/dL Plasma Lactic Acid Durga (0.7-2.0) mmol/L Calcium (8.4-10.2) mg/dL Total Bilirubin (0.2-1.3) mg/dL AST (14-36) U/L ALT (4-34) U/L Alkaline Phosphatase (38-126) U/L Troponin I (0.000-0.034) ng/mL Total Protein (6.3-8.2) g/dL Albumin (3.5-5.0) g/dL Urine Color Colorless Urine Appearance Clear (Clear) Urine pH 6.5 (5.0-8.0) Ur Specific [place] 1.005 (1.001-1.035) Urine Protein Negative (Negative) Urine Glucose (UA) Negative (Negative) Urine Ketones Negative (Negative) Urine Blood Negative (Negative) Urine Nitrite Negative (Negative) Urine Bilirubin Negative (Negative) Urine Urobilinogen <2.0 (<2.0) mg/dL Ur Leukocyte Esterase Negative (Negative) Coronavirus (PCR) (Not Detectd) Influenza Type A RNA (Not Detectd) Influenza Type B (PCR) (Not Detectd) 06/06/22 06/06/22 06/06/22 Range/Units 21:52 21:52 21:52 WBC (3.8-10.6) k/uL RBC (3.80-5.40) m/uL Hgb (11.4-16.0) gm/dL Hct (34.0-46.0) % MCV (80.0-100.0) fL MCH (25.0-35.0) pg MCHC (31.0-37.0) g/dL RDW (11.5-15.5) % Plt Count (150-450) k/uL MPV Neutrophils % % Lymphocytes % % Monocytes % % Eosinophils % % Basophils % % Neutrophils # (1.3-7.7) k/uL Lymphocytes # (1.0-4.8) k/uL Monocytes # (0-1.0) k/uL Eosinophils # (0-0.7) k/uL Basophils # (0-0.2) k/uL PT (9.0-12.0) sec INR (<1.2) Sodium 139 (137-145) mmol/L Potassium 3.4 L (3.5-5.1) mmol/L Chloride 96 L (98-107) mmol/L Carbon Dioxide 30 (22-30) mmol/L Anion Gap 13 mmol/L BUN 26 H (7-17) mg/dL Creatinine 1.63 H (0.52-1.04) mg/dL Est GFR (CKD-EPI)AfAm 36 (>60 ml/min/1.73 sqM) Est GFR (CKD-EPI)NonAf 31 (>60 ml/min/1.73 sqM) Glucose 101 H (74-99) mg/dL Plasma Lactic Acid Durga 1.4 (0.7-2.0) mmol/L Calcium 9.1 (8.4-10.2) mg/dL Total Bilirubin 0.4 (0.2-1.3) mg/dL AST 30 (14-36) U/L ALT 23 (4-34) U/L Alkaline Phosphatase 88 (38-126) U/L Troponin I <0.012 (0.000-0.034) ng/mL Total Protein 7.6 (6.3-8.2) g/dL Albumin 4.3 (3.5-5.0) g/dL Urine Color Urine Appearance (Clear) Urine pH (5.0-8.0) Ur Specific [place] (1.001-1.035) Urine Protein (Negative) Urine Glucose (UA) (Negative) Urine Ketones (Negative) Urine Blood (Negative) Urine Nitrite (Negative) Urine Bilirubin (Negative) Urine Urobilinogen (<2.0) mg/dL Ur Leukocyte Esterase (Negative) Coronavirus (PCR) (Not Detectd) Influenza Type A RNA (Not Detectd) Influenza Type B (PCR) (Not Detectd) 06/06/22 06/06/22 Range/Units 22:29 22:29 WBC (3.8-10.6) k/uL RBC (3.80-5.40) m/uL Hgb (11.4-16.0) gm/dL Hct (34.0-46.0) % MCV (80.0-100.0) fL MCH (25.0-35.0) pg MCHC (31.0-37.0) g/dL RDW (11.5-15.5) % Plt Count (150-450) k/uL MPV Neutrophils % % Lymphocytes % % Monocytes % % Eosinophils % % Basophils % % Neutrophils # (1.3-7.7) k/uL Lymphocytes # (1.0-4.8) k/uL Monocytes # (0-1.0) k/uL Eosinophils # (0-0.7) k/uL Basophils # (0-0.2) k/uL PT (9.0-12.0) sec INR (<1.2) Sodium (137-145) mmol/L Potassium (3.5-5.1) mmol/L Chloride (98-107) mmol/L Carbon Dioxide (22-30) mmol/L Anion Gap mmol/L BUN (7-17) mg/dL Creatinine (0.52-1.04) mg/dL Est GFR (CKD-EPI)AfAm (>60 ml/min/1.73 sqM) Est GFR (CKD-EPI)NonAf (>60 ml/min/1.73 sqM) Glucose (74-99) mg/dL Plasma Lactic Acid Durga (0.7-2.0) mmol/L Calcium (8.4-10.2) mg/dL Total Bilirubin (0.2-1.3) mg/dL AST (14-36) U/L ALT (4-34) U/L Alkaline Phosphatase (38-126) U/L Troponin I (0.000-0.034) ng/mL Total Protein (6.3-8.2) g/dL Albumin (3.5-5.0) g/dL Urine Color Urine Appearance (Clear) Urine pH (5.0-8.0) Ur Specific [place] (1.001-1.035) Urine Protein (Negative) Urine Glucose (UA) (Negative) Urine Ketones (Negative) Urine Blood (Negative) Urine Nitrite (Negative) Urine Bilirubin (Negative) Urine Urobilinogen (<2.0) mg/dL Ur Leukocyte Esterase (Negative) Coronavirus (PCR) Not Detected (Not Detectd) Influenza Type A RNA Not Detected (Not Detectd) Influenza Type B (PCR) Not Detected (Not Detectd) Disposition Clinical Impression: CHE (acute kidney injury) Disposition: ADMITTED IP TO THIS [facility] Condition: Good Time of Disposition: 00:14 Decision to Admit Reason: Admit from EC Decision Date: 06/07/22 Decision Time: 00:14
[2022-06-06 22:18] LABS: Albumin 4.3 g/dL (3.5-5.0); Calcium 9.1 mg/dL (8.4-10.2); Potassium 3.4 mmol/L (3.5-5.1); Total Bilirubin 0.4 mg/dL (0.2-1.3); Total Protein 7.6 g/dL (6.3-8.2)
[2022-06-06 23:06] LABS: Appearance,Urine Clear (Clear); Bilirubin,Urine Negative (Negative); Blood,Urine Negative (Negative); Color,Urine Colorless; Glucose,Urine (UA) Negative (Negative); Ketones,Urine Negative (Negative); Leukocyte Esterase,Urine Negative (Negative); Nitrite,Urine Negative (Negative); PH, Urine 6.5 (5.0-8.0); Protein,Urine Negative (Negative); Specific Gravity,Urine 1.005 (1.001-1.035); Urobilinogen,Urine <2.0 mg/dL (<2.0)
--- NOTE | 2022-06-06 23:25 | XR ---
EXAMINATION TYPE: XR chest 2V DATE OF EXAM: 06/06/2022 COMPARISON: 07/14/2016 HISTORY: Dizziness TECHNIQUE: FINDINGS: Heart is normal. Lungs are clear. Diaphragm is normal. Bony thorax is intact. IMPRESSION: Normal chest. No change.
[2022-06-07] MEDS ORDERED: NALOXONE 0.4 MG/ML 1 ML VIAL IV PRN (00:12)
[2022-06-07] MEDS: SODIUM CHLORIDE 0.9% 1,000 ML IV SCH ×2 (03:18→16:38)
[2022-06-07] MEDS: POTASSIUM CHLORIDE ER 10 MEQ TAB.ER.PRT PO SCH ×2 (08:21→21:08)
[2022-06-07] MEDS: METOPROLOL TARTRATE 25 MG TAB PO SCH ×2 (08:21→18:59)
[2022-06-07] MEDS ORDERED: LEVOTHYROXINE 75 MCG TAB PO ONE (08:58)
[2022-06-07] MEDS: CLINDAMYCIN 150 MG CAP PO SCH ×5 (10:04→21:08)
--- NOTE | 2022-06-07 11:43 | P.HPIM ---
History of Present Illness H&P Date: 06/07/22 HISTORY OF PRESENT ILLNESS This is a 71-year-old female with past medical history of hypertension, hyperlipidemia, hypothyroidism, generalized anxiety disorder, glaucoma, history of positive Covid test in February 2022 and August 2021, essential tremors, chronic gout. Patient had colonoscopy done on 05/[address] Dutch Ontiveros and biopsy reported tubular adenoma. Patient was advised to have a repeat colonoscopy in 3 years. Patient states that she felt very dehydrated during the procedure and has not been back to her baseline although she is drinking water and has some lower extremity edema. She states on Friday she started having to pay on the right side along with chills and ear pain. She contacted her dentist on Friday and went in yesterday for an appointment. She does relate that several weeks ago she heard a crack in her tooth. Right-sided cheek was extremely swollen. She saw her dentist yesterday and was found to have an elevated systolic blood pressure 185. Patient rechecked at home and her systolic blood pressure was 186. Patient was started on clindamycin by her dentist and has taken a total of 3 tablets. She states she's been feeling gassy bloated since then but no diarrhea. Patient is complaining of dizziness which was intermittent for the past 3 days. No chest pain or shortness of breath, no palpitations or weakness. No fever or chills. Patient presented to [facility] emergency center for evaluation and found to have a blood pressure 161/75, heart rate was 77, pulse ox 99% on room air. Patient was afebrile. EKG is a sinus rhythm with T-wave inversion in V1. WBC 10.6, hemoglobin 15.5, platelet count 198. Sodium 139, potassium 3.4, chloride 96, CO2 30, BUN 26 and creatinine 1.63. Blood sugar 101. INR 1.0. Urinalysis negative. Lactic acid 1.4. Troponin negative. Liver function tests within normal limits.Coronavirus PCR not detected. Influenza a not detected. Influenza B not detected. Patient is status post 1 L of IV fluid, Antivert and continued on 0.9 normal saline. Patient is seen today in the emergency center waiting for a bed on the observation unit. Blood pressure this morning was .137/56 REVIEW OF SYSTEMS Constitutional: No fever, no chills, no night sweats. No weight change. No weakness, mild generalized fatigue no lethargy. No daytime sleepiness. EENT: No headache. No blurred vision or double vision, no loss of vision. No loss of Hearing, reports right ear pain reports dizziness. No nasal drainage or congestion. No epistaxis. No sore throat. Reports right-sided tooth pain. Lungs: No shortness of breath, cough, no sputum production. No wheezing. Cardiovascular: No chest pain, no lower extremity edema. No palpitations. No paroxysmal nocturnal dyspnea. No orthopnea. Reports lightheadedness or dizziness. No syncopal episodes. Abdominal: No abdominal pain. No nausea, vomiting. No diarrhea. No constipation. No bloody or tarry stools. No loss of appetite. Genitourinary: No dysuria, increased frequency, urgency. No urinary retention. Musculoskeletal: No myalgias. No muscle weakness, no gait dysfunction, no frequent falls. No back pain. No neck pain. Integumentary: No wounds, no lesions. No rash or pruritus. No unusual bruisi ng. No change in hair or nails. Neurologic: No aphasia. No facial droop. No change in mentation. No head injury. No headache. No paralysis. No paresthesia. Psychiatric: No depression. No anxiety. No mood swings. Endocrine: No abnormal blood sugars. No weight change. No excessive sweating or thirst. No cold intolerance. MEDICAL HISTORY hypertension Hyperlipidemia Hypothyroidism Generalized anxiety disorder Glaucoma Gout, chronic SURGICAL HISTORY BILATERAL KNEE REPLACEMENTS D&C GANGLION CYST REMOVAL RIGHT WRIST PAIN CLINIC PROCEDURES APPENDECTOMY CHOLECYSTECTOMY TONSILLECTOMY COLONOSCOPY SOCIAL HISTORY Patient is a lifelong nonsmoker, no alcohol abuse or use. No illicit drug use, no marijuana use. FAMILY HISTORY Father at age 97 due to dementia with history of arthritis, MA with CABG, s troke, traumatic brain injury. Mother at age 91 with atrial fibrillation, lung cancer and essential tremor. Patient has one brother living at age 68 with history of hypertension and anxiety. Patient has a total of 3 sons, one son with clotting disorder and obesity, one with hypertension and one with cleft lip asthma and DVT. PHYSICAL EXAMINATION Gen: This i a morbidly obese 71-year-old female. She is resting on the ER stretcher and appears to be comfortable and in no acute distress. HEENT: Head is atraumatic, normocephalic. Pupils equal, round. Sclerae is anicteric. Right ear canal with wax, left ear canal is clear without discharge, tympanic membrane is normal. NECK: Supple. No JVD. No lymphadenopathy. No thyromegaly. LUNGS: Clear to auscultation. No wheezes or rhonchi. No intercostal retractions. HEART: First heart sound is depressed, second heart sound is normal, 2/6 systolic ejection murmur at the left sternal border, no S3, no S4. ABDOMEN: Soft. Bowel sounds are present. No masses. No tenderness. EXTREMITIES: 1+ bilateral pedal edema. No calf tenderness. dorsalis pedis +2 bilaterally. NEUROLOGICAL: Patient is awake, alert and oriented x3. Cranial nerves 2 through 12 are grossly intact. ASSESSMENT AND PLAN 1. Acute kidney injury. Patient is continued on 0.9 normal saline at 75 mL/h, recheck electrolytes and renal function this morning. Repeat BMP tomorrow. Hold Bumex and Maxide. 2. Right tooth infection. Patient will be continued on clindamycin, follow-up with dentist as an outpatient. 3. Hypertension, uncontrolled. Patient will be resumed on Lopressor 25 mg twice daily, monitor blood pressure closely. 4. Hyperlipidemia. Continue atorvastatin 20 mg at bedtime. 5. Hypothyroidism. Continue levothyroxine 75 g daily. 6. Generalized anxiety disorder. Continue topiramate 50 mg at bedtime. 7. Glaucoma. Continue eyedrops. 8. GI prophylaxis. Protonix. 9. DVT prophylaxis. Lovenox subcu. Patient will be admitted to the hospital for a minimum of 2 night stay. DISCHARGE PLAN Return home. Impression and plan of care have been directed as dictated by the signing physician. Bhavana Rodriguez nurse practitioner acting as scribe for signing physician. Past Medical History Past Medical History: Hypertension Additional Past Medical History / Comment(s): tested positive for Covid in February 2022,tested positive for covid in Aug 2021,hand tremors, cellulitis lt leg approx 12 yrs ago, GOUT,hemorrhoids,anal fistual back 5th grade History of Any Multi-Drug Resistant Organisms: None Reported Past Surgical History: Cholecystectomy Additional Past Surgical History / Comment(s): knee replacement bilateral ,d&c,ganglion cyst removed rt wrist,pain clinic procedures Past Anesthesia/Blood Transfusion Reactions: No Reported Reaction, Family History of Problems w/ Anesthesia Additional Past Anesthesia/Blood Transfusion Reaction / Comment(s): woke up during knee surgery. son has hard time coming out of anesthesia Past Psychological History: Anxiety Smoking Status: Never smoker - Past Family History Mother Family Medical History: Cancer, Deep Vein Thrombosis (DVT) Additional Family Medical History / Comment(s): lung-Valley fever Medications and Allergies Home Medications Medication Instructions Recorded Confirmed Type Atorvastatin [Lipitor] 20 mg PO HS@1900 07/14/16 06/07/22 History Cholecalciferol [Vitamin D3] 50 mcg PO HS@1900 07/14/16 06/07/22 History Levothyroxine Sodium [Synthroid] 75 mcg PO AC-BRKFST 07/14/16 06/07/22 History Metoprolol Tartrate [Lopressor] 25 mg PO BID@0830,1900 07/14/16 06/07/22 History Ascorbic Acid [Vitamin C] 1,000 mg PO DAILY 08/05/20 06/07/22 History Latanoprost [Xalatan 0.005%] 1 drop BOTH EYES HS@1900 08/05/20 06/07/22 History Bumetanide [Bumex] 1 mg PO HS@1900 10/17/21 06/07/22 History Potassium Chloride [Klor-Con 20] 10 meq PO BID 10/17/21 06/07/22 History Topiramate 50 mg PO HS@1900 10/17/21 06/07/22 History Triamterene-Hctz 37.5-25Mg 1 tab PO HS@1900 10/17/21 06/07/22 History [Maxzide 37.5-25] Clindamycin [Cleocin] 150 mg PO Q6H 06/07/22 06/07/22 History Allergies Allergy/AdvReac Type Severity Reaction Status Date / Time amoxicillin Allergy Rash/Hives Verified 06/07/22 06:50 atenolol [From Tenormin] AdvReac INTENSIFIES Verified 06/07/22 06:50 ASTHMA levofloxacin [From Levaquin] AdvReac INTENSIFIES Verified 06/07/22 06:50 SOUNDS/INSOMNIA Physical Exam Vitals: Vital Signs Temp Pulse Resp BP Pulse Ox 06/07/22 07:35 18 06/07/22 06:38 98 F 06/07/22 06:35 62 18 142/69 98 06/07/22 01:52 68 18 138/66 96 06/06/22 21:33 64 18 146/68 98 06/06/22 20:20 97.5 F L 77 16 161/75 99 Intake and Output 06/06/22 06/07/22 06/07/22 22:59 06:59 14:59 Other: Weight 133.81 kg Results CBC & Chem 7: 06/06/22 21:52 06/06/22 21:52 Labs: Abnormal Lab Results - Last 24 Hours (Table) 06/06/22 06/06/22 Range/Units 21:52 21:52 Hct 46.5 H (34.0-46.0) % Potassium 3.4 L (3.5-5.1) mmol/L Chloride 96 L (98-107) mmol/L BUN 26 H (7-17) mg/dL Creatinine 1.63 H (0.52-1.04) mg/dL Glucose 101 H (74-99) mg/dL
[2022-06-07 16:31] LABS: African American GFR (CKD) 79 (>60 ml/min/1.73 sqM); Anion Gap 13 mmol/L; Blood Urea Nitrogen 19 mg/dL (7-17); Calcium 8.5 mg/dL (8.4-10.2); Carbon Dioxide 24 mmol/L (22-30); Chloride 100 mmol/L (98-107); Glucose 99 mg/dL (74-99); Non-African American GFR(CKD) 68 (>60 ml/min/1.73 sqM); Potassium 3.5 mmol/L (3.5-5.1); Sodium 137 mmol/L (137-145)
[2022-06-07] MEDS ORDERED: ATORVASTATIN 20 MG TAB PO SCH (19:00)
[2022-06-07] MEDS ORDERED: LATANOPROST 0.005% OPHTH DROPS 2.5 ML BTL BOTH EYES SCH (19:00)
[2022-06-07] MEDS ORDERED: TOPIRAMATE 25 MG TAB PO SCH (19:00)
[2022-06-08] MEDS: SODIUM CHLORIDE 0.9% 1,000 ML IV SCH (01:37)
[2022-06-08] MEDS ORDERED: PANTOPRAZOLE 40 MG TABLET PO SCH (07:30)
[2022-06-08] MEDS ORDERED: LEVOTHYROXINE 75 MCG TAB PO SCH (07:30)
[2022-06-08 07:58] LABS: African American GFR (CKD) >90 (>60 ml/min/1.73 sqM); Anion Gap 5 mmol/L; Blood Urea Nitrogen 14 mg/dL (7-17); Calcium 8.1 mg/dL (8.4-10.2); Carbon Dioxide 28 mmol/L (22-30); Chloride 106 mmol/L (98-107); Glucose 96 mg/dL (74-99); Non-African American GFR(CKD) 88 (>60 ml/min/1.73 sqM); Potassium 3.3 mmol/L (3.5-5.1); Sodium 139 mmol/L (137-145)
[2022-06-08 08:22] VITALS: BP 127/77; PULSE 60; RESP 18; TEMP 98
[2022-06-08] MEDS: CLINDAMYCIN 150 MG CAP PO SCH (08:50)
[2022-06-08] MEDS: POTASSIUM CHLORIDE ER 10 MEQ TAB.ER.PRT PO SCH (08:50)
[2022-06-08] MEDS: METOPROLOL TARTRATE 25 MG TAB PO SCH (08:50)
[2022-06-08] MEDS ORDERED: ENOXAPARIN 40 MG/0.4 ML SYRINGE SQ SCH (09:00)
--- NOTE | 2022-06-08 10:30 | P.DS ---
Providers Date of admission: 06/07/22 08:58 Attending physician: Nik Bautista Primary care physician: Nik Bautista [facility] Course: HISTORY OF PRESENT ILLNESS This is a 71-year-old female with past medical history of hypertension, hyperlipidemia, hypothyroidism, generalized anxiety disorder, glaucoma, history of positive Covid test in February 2022 and August 2021, essential tremors, chronic gout. Patient had colonoscopy done on 05/[address] Dutch Ontiveros and biopsy reported tubular adenoma. Patient was advised to have a repeat colonoscopy in 3 years. Patient states that she felt very dehydrated during the procedure and has not been back to her baseline although she is drinking water and has some lower extremity edema. She states on Friday she started having to pay on the right side along with chills and ear pain. She contacted her dentist on Friday and went in yesterday for an appointment. She does relate that several weeks ago she heard a crack in her tooth. Right-sided cheek was extremely swollen. She saw her dentist yesterday and was found to have an elevated systolic blood pressure 185. Patient rechecked at home and her systolic blood pressure was 186. Patient was started on clindamycin by her dentist and has taken a total of 3 tablets. She states she's been feeling gassy bloated since then but no diarrhea. Patient is complaining of dizziness which was intermittent for the past 3 days. No chest pain or shortness of breath, no palpitations or weakness. No fever or chills. Patient presented to [facility] emergency center for evaluation and found to have a blood pressure 161/75, heart rate was 77, pulse ox 99% on room air. Patient was afebrile. EKG is a sinus rhythm with T-wave inversion in V1. WBC 10.6, hemoglobin 15.5, platelet count 198. Sodium 139, potassium 3.4, chloride 96, CO2 30, BUN 26 and creatinine 1.63. Blood sugar 101. INR 1.0. Urinalysis negative. Lactic acid 1.4. Troponin negative. Liver function tests within normal limits.Coronavirus PCR not detected. Influenza a not detected. Influenza B not detected. Patient is status post 1 L of IV fluid, Antivert and continued on 0.9 normal saline. Patient is seen today in the emergency center waiting for a bed on the observation unit. Blood pressure this morning was .137/56 discharge diagnoses: 1. Acute kidney injury. 2. Right tooth infection. 3. Hypertension, uncontrolled. 4. Hyperlipidemia. 5. Hypothyroidism. 6. Generalized anxiety disorder. 7. Glaucoma. Patient Condition at Discharge: Good Plan - Discharge Summary Discharge Rx Participant: No New Discharge Prescriptions: No Action Levothyroxine Sodium [Synthroid] 75 mcg PO AC-BRKFST Cholecalciferol [Vitamin D3] 50 mcg PO HS@1900 Atorvastatin [Lipitor] 20 mg PO HS@1900 Metoprolol Tartrate [Lopressor] 25 mg PO BID@0830,1900 Latanoprost [Xalatan 0.005%] 1 drop BOTH EYES HS@1900 Ascorbic Acid [Vitamin C] 1,000 mg PO DAILY Triamterene-Hctz 37.5-25Mg [Maxzide 37.5-25] 1 tab PO HS@1900 Topiramate 50 mg PO HS@1900 Clindamycin [Cleocin] 150 mg PO Q6H Potassium Chloride [Klor-Con 20] 10 meq PO BID Bumetanide [Bumex] 1 mg PO HS@1900 Discharge Medication List Atorvastatin [Lipitor] 20 mg PO HS@1900 07/14/16 [History] Cholecalciferol [Vitamin D3] 50 mcg PO HS@1900 07/14/16 [History] Levothyroxine Sodium [Synthroid] 75 mcg PO AC-BRKFST 07/14/16 [History] Metoprolol Tartrate [Lopressor] 25 mg PO BID@0830,1900 07/14/16 [History] Ascorbic Acid [Vitamin C] 1,000 mg PO DAILY 08/05/20 [History] Latanoprost [Xalatan 0.005%] 1 drop BOTH EYES HS@1900 08/05/20 [History] Bumetanide [Bumex] 1 mg PO HS@1900 10/17/21 [History] Potassium Chloride [Klor-Con 20] 10 meq PO BID 10/17/21 [History] Topiramate 50 mg PO HS@1900 10/17/21 [History] Triamterene-Hctz 37.5-25Mg [Maxzide 37.5-25] 1 tab PO HS@1900 10/17/21 [History] Clindamycin [Cleocin] 150 mg PO Q6H 06/07/22 [History] Follow up Appointment(s)/Referral(s): Nik Bautista MD [Primary Care Provider] - 1-2 days
== END 2022-06-08 11:52 | disposition home or self-care (01) | DRG 683 ==
LOC: EC 19:42 → 6NMEDSUR 23:35 → OBSVTOIN 06-07 08:58 → 5NMEDONC 06-07 14:20 → 6NMEDSUR 06-07 15:26
PROVIDERS: ADMIT Internal Medicine; ATTEND Internal Medicine
DX: N17.9 Acute kidney failure, unspecified (principal); Z68.42 Body mass index [BMI] 45.0-49.9, adult; I10 Essential (primary) hypertension; E78.5 Hyperlipidemia, unspecified; E03.9 Hypothyroidism, unspecified; E86.0 Dehydration; F41.1 Generalized anxiety disorder; G25.0 Essential tremor; H40.9 Unspecified glaucoma; K04.7 Periapical abscess without sinus; M1A.9XX0 Chronic gout, unspecified, without tophus (tophi); Z79.890 Hormone replacement therapy; Z79.899 Other long term (current) drug therapy; Z82.49 Family history of ischemic heart disease and other diseases of the circulatory system; Z86.16 Personal history of COVID-19; Z20.822 Contact with and (suspected) exposure to COVID-19; Z86.010 Personal history of colon polyps; E66.01 Morbid (severe) obesity due to excess calories
CPT/HCPCS: 36415; 71046; 80048; 80053; 81003; 83605; 84484; 85025; 85610; 87502; 87635; 93005

== ENCOUNTER 2022-06-17 20:58 | Emergency (ER) | payer MEDICARE ==
[2022-06-17 21:06] VITALS: TEMP 98.2
[2022-06-17] MEDS ORDERED: SODIUM CHLORIDE 0.9% 1,000 ML IV STA (21:59)
[2022-06-17] MEDS ORDERED: hydrALAZINE HCL 20 MG/ML 1 ML VIAL IVP STA (21:59)
--- NOTE | 2022-06-17 22:02 | ED ---
Weakness HPI - General Chief complaint: Weakness Stated complaint: BP High Time Seen by Provider: 06/17/22 21:43 Source: patient, RN notes reviewed, old records reviewed Mode of arrival: ambulatory Limitations: no limitations - History of Present Illness Initial comments: This is a 71-year-old female to the emergency department for evaluation patient having significant concern over multiple complaints blood pressure kidney kidney injury with she's had in the past. Patient was concerned of low potassium levels. Patient does take extra potassium. Otherwise patient has no other complaints. Patient is very anxious on arrival to the ER. MD Complaint: generalized weakness -: days(s) Location: generalized Severity: moderate Severity scale (1-10): 4 Quality: tingling, numbness Consistency: intermittent Improves with: none Worsens with: none Context: history of similar Associated Symptoms: confusion, headaches (Headaches), other - Related Data Home Medications Medication Instructions Recorded Confirmed Atorvastatin [Lipitor] 20 mg PO HS@1900 07/14/16 06/17/22 Levothyroxine Sodium [Synthroid] 75 mcg PO AC-BRKFST 07/14/16 06/17/22 Metoprolol Tartrate [Lopressor] 25 mg PO BID@0830,1900 07/14/16 06/17/22 Ascorbic Acid [Vitamin C] 1,000 mg PO DAILY 08/05/20 06/17/22 Latanoprost [Xalatan 0.005%] 1 drop BOTH EYES HS@1900 08/05/20 06/17/22 Bumetanide [BUMEX] 1 mg PO DIRECTED 10/17/21 06/17/22 Potassium Chloride [Klor-Con 20] 10 meq PO BID 10/17/21 06/17/22 Topiramate 50 mg PO HS@1900 10/17/21 06/17/22 Triamterene-Hctz 37.5-25Mg 1 tab PO DIRECTED 10/17/21 06/17/22 [Maxzide 37.5-25] Cholecalciferol [Vitamin D3 (25 50 mcg PO HS@1900 06/17/22 06/17/22 Mcg = 1000 Iu)] Allergies Allergy/AdvReac Type Severity Reaction Status Date / Time amoxicillin Allergy Rash/Hives Verified 06/17/22 22:29 atenolol [From Tenormin] AdvReac INTENSIFIES Verified 06/17/22 22:29 ASTHMA levofloxacin [From Levaquin] AdvReac INTENSIFIES Verified 06/17/22 22:29 SOUNDS/INSOMNIA Review of Systems ROS Statement: Those systems with pertinent positive or pertinent negative responses have been documented in the HPI. ROS Other: All systems not noted in ROS Statement are negative. Past Medical History Past Medical History: Hypertension Additional Past Medical History / Comment(s): tested positive for Covid in February 2022,tested positive for covid in Aug 2021,hand tremors, cellulitis lt leg approx 12 yrs ago, GOUT,hemorrhoids,anal fistual back 5th grade History of Any Multi-Drug Resistant Organisms: None Reported Past Surgical History: Cholecystectomy Additional Past Surgical History / Comment(s): knee replacement bilateral ,d&c,ganglion cyst removed rt wrist,pain clinic procedures Past Anesthesia/Blood Transfusion Reactions: No Reported Reaction, Family History of Problems w/ Anesthesia Additional Past Anesthesia/Blood Transfusion Reaction / Comment(s): woke up during knee surgery. son has hard time coming out of anesthesia Past Psychological History: Anxiety Smoking Status: Never smoker Past Alcohol Use History: None Reported Past Drug Use History: None Reported - Past Family History Mother Family Medical History: Cancer, Deep Vein Thrombosis (DVT) Additional Family Medical History / Comment(s): lung-Val[place] fever General Exam Limitations: no limitations General appearance: alert, in no apparent distress, anxious Head exam: Present: atraumatic, normocephalic, normal inspection Eye exam: Present: normal appearance, PERRL, EOMI. Absent: scleral icterus, conjunctival injection, periorbital swelling ENT exam: Present: normal exam, mucous membranes moist Neck exam: Present: normal inspection. Absent: tenderness, meningismus, lymphadenopathy Respiratory exam: Present: normal lung sounds bilaterally. Absent: respiratory distress, wheezes, rales, rhonchi, stridor Cardiovascular Exam: Present: regular rate, normal rhythm, normal heart sounds. Absent: systolic murmur, diastolic murmur, rubs, gallop, clicks GI/Abdominal exam: Present: soft, normal bowel sounds. Absent: distended, tenderness, guarding, rebound, rigid Extremities exam: Present: normal inspection, full ROM, normal capillary refill. Absent: tenderness, pedal edema, joint swelling, calf tenderness Back exam: Present: normal inspection Neurological exam: Present: alert, oriented X3, CN II-XII intact Psychiatric exam: Present: normal affect, normal mood Skin exam: Present: warm, dry, intact, normal color. Absent: rash Course Vital Signs 06/17/22 06/17/22 06/17/22 21:02 22:15 23:13 Temperature 98.2 F Pulse Rate 80 82 61 Respiratory 20 18 16 Rate Blood Pressure 207/86 171/81 159/68 O2 Sat by Pulse 100 97 96 Oximetry - Reevaluation(s) Reevaluation #1: 06/18/22 00:25 Medical record is reviewed Reevaluation #2: 06/18/22 00:25 Patient symptoms are improved here in the ER, given potassium and Lasix, patient's blood pressure improved without treatment Reevaluation #3: 06/18/22 00:25 Patient informed results and questions answered - Consultations Consultation #1: Spoke with Dr. Bautista who agrees to see patient in the office EKG Findings - EKG Comments: EKG Findings:: EKG normal sinus 83 MS 199 QRS 103 QTc 402 Medical Decision Making - Medical Decision Making 71 female DF for evaluation patient coming in for stress anxiety elevated blood pressure concern for renal failure and low potassium. Patient evaluated here in the ER symptoms are improved. Patient given potassium Lasix and can be discharged home - Lab Data Result diagrams: 06/17/22 22:00 06/17/22 22:00 Lab Results 06/17/22 06/17/22 06/17/22 Range/Units 22:00 22:00 22:00 WBC 9.2 (3.8-10.6) k/uL RBC 5.30 (3.80-5.40) m/uL Hgb 15.7 (11.4-16.0) gm/dL Hct 46.2 H (34.0-46.0) % MCV 87.3 (80.0-100.0) fL MCH 29.6 (25.0-35.0) pg MCHC 33.9 (31.0-37.0) g/dL RDW 13.8 (11.5-15.5) % Plt Count 194 (150-450) k/uL MPV 7.4 Neutrophils % 53 % Lymphocytes % 34 % Monocytes % 6 % Eosinophils % 4 % Basophils % 1 % Neutrophils # 4.9 (1.3-7.7) k/uL Lymphocytes # 3.1 (1.0-4.8) k/uL Monocytes # 0.5 (0-1.0) k/uL Eosinophils # 0.4 (0-0.7) k/uL Basophils # 0.1 (0-0.2) k/uL Sodium 137 (137-145) mmol/L Potassium 3.4 L (3.5-5.1) mmol/L Chloride 103 (98-107) mmol/L Carbon Dioxide 25 (22-30) mmol/L Anion Gap 9 mmol/L BUN 15 (7-17) mg/dL Creatinine 0.77 (0.52-1.04) mg/dL Est GFR (CKD-EPI)AfAm 89 (>60 ml/min/1.73 sqM) Est GFR (CKD-EPI)NonAf 77 (>60 ml/min/1.73 sqM) Glucose 113 H (74-99) mg/dL Calcium 9.1 (8.4-10.2) mg/dL Phosphorus 3.5 (2.5-4.5) mg/dL Magnesium 2.2 (1.6-2.3) mg/dL Total Bilirubin 0.3 (0.2-1.3) mg/dL AST 30 (14-36) U/L ALT 26 (4-34) U/L Alkaline Phosphatase 91 (38-126) U/L Troponin I <0.012 (0.000-0.034) ng/mL NT-Pro-B Natriuret Pep pg/mL Total Protein 7.6 (6.3-8.2) g/dL Albumin 4.3 (3.5-5.0) g/dL 06/17/22 Range/Units 22:00 WBC (3.8-10.6) k/uL RBC (3.80-5.40) m/uL Hgb (11.4-16.0) gm/dL Hct (34.0-46.0) % MCV (80.0-100.0) fL MCH (25.0-35.0) pg MCHC (31.0-37.0) g/dL RDW (11.5-15.5) % Plt Count (150-450) k/uL MPV Neutrophils % % Lymphocytes % % Monocytes % % Eosinophils % % Basophils % % Neutrophils # (1.3-7.7) k/uL Lymphocytes # (1.0-4.8) k/uL Monocytes # (0-1.0) k/uL Eosinophils # (0-0.7) k/uL Basophils # (0-0.2) k/uL Sodium (137-145) mmol/L Potassium (3.5-5.1) mmol/L Chloride (98-107) mmol/L Carbon Dioxide (22-30) mmol/L Anion Gap mmol/L BUN (7-17) mg/dL Creatinine (0.52-1.04) mg/dL Est GFR (CKD-EPI)AfAm (>60 ml/min/1.73 sqM) Est GFR (CKD-EPI)NonAf (>60 ml/min/1.73 sqM) Glucose (74-99) mg/dL Calcium (8.4-10.2) mg/dL Phosphorus (2.5-4.5) mg/dL Magnesium (1.6-2.3) mg/dL Total Bilirubin (0.2-1.3) mg/dL AST (14-36) U/L ALT (4-34) U/L Alkaline Phosphatase (38-126) U/L Troponin I (0.000-0.034) ng/mL NT-Pro-B Natriuret Pep 67 pg/mL Total Protein (6.3-8.2) g/dL Albumin (3.5-5.0) g/dL Disposition Clinical Impression: Hypokalemia, Dehydration, Anxiety Disposition: HOME SELF-CARE Condition: Good Instructions (If sedation given, give patient instructions): Hypertension (ED), Hypokalemia (ED) Is patient prescribed a controlled substance at d/c from ED?: No Referrals: None,Stated [REFERRING] - 1-2 days Time of Disposition: 00:30
[2022-06-17 22:12] LABS: Basophils # (A) 0.1 k/uL (0-0.2); Basophils % (A) 1 %; Eosinophils # (A) 0.4 k/uL (0-0.7); Eosinophils % (A) 4 %; HCT 46.2 % (34.0-46.0); HGB 15.7 gm/dL (11.4-16.0); Lymphocytes # (A) 3.1 k/uL (1.0-4.8); Lymphocytes % (A) 34 %; MCH 29.6 pg (25.0-35.0); MCHC 33.9 g/dL (31.0-37.0); MCV 87.3 fL (80.0-100.0); Mean Platelet Volume 7.4; Monocytes # (A) 0.5 k/uL (0-1.0); Monocytes % (A) 6 %; Neutrophils # (A) 4.9 k/uL (1.3-7.7); Neutrophils % (A) 53 %; Platelet Count 194 k/uL (150-450); RDW 13.8 % (11.5-15.5); WBC 9.2 k/uL (3.8-10.6)
[2022-06-17 22:22] LABS: Albumin 4.3 g/dL (3.5-5.0); Calcium 9.1 mg/dL (8.4-10.2); Magnesium 2.2 mg/dL (1.6-2.3); Phosphorus 3.5 mg/dL (2.5-4.5); Potassium 3.4 mmol/L (3.5-5.1); Total Bilirubin 0.3 mg/dL (0.2-1.3); Total Protein 7.6 g/dL (6.3-8.2)
[2022-06-17 23:15] VITALS: BP 159/68; PULSE 61; RESP 16
[2022-06-17] MEDS ORDERED: POTASSIUM BICARBONATE/CIT AC 20 MEQ TABLET.EFF PO ONE (23:58)
[2022-06-18] MEDS ORDERED: POTASSIUM BICARBONATE/CIT AC 20 MEQ TABLET.EFF PO ONE
[2022-06-18] MEDS ORDERED: FUROSEMIDE 10 MG/ML 4 ML VIAL IV STA (00:27)
[2022-06-18] MEDS ORDERED: IBUPROFEN 800 MG TAB PO STA (00:44)
[2022-06-18] MEDS ORDERED: PROCHLORPERAZINE 10 MG TAB PO STA (00:44)
== END 2022-06-18 01:09 | disposition home or self-care (01) ==
LOC: EC 20:58
DX: E87.6 Hypokalemia (principal); E86.0 Dehydration; F41.9 Anxiety disorder, unspecified; I10 Essential (primary) hypertension; Z88.0 Allergy status to penicillin; Z88.8 Allergy status to other drugs, medicaments and biological substances; Z88.1 Allergy status to other antibiotic agents; Z79.899 Other long term (current) drug therapy
CPT/HCPCS: 36415; 80053; 83735; 83880; 84100; 84484; 85025; 93005; 99285

== ENCOUNTER → 2023-02-07 | Outpatient (CLI) | payer MEDICARE ==
--- NOTE | 2023-02-10 09:49 | MM ---
Reason for Exam: Screening (asymptomatic). Last screening mammogram was performed 12 month(s) ago. Patient History: Menarche at age 10. First Full-Term at age 24. Postmenopausal. Patient has history of breast feeding. Estrogen for 2 years from age 50 until age 52. Risk Values: Bibi 5 year model risk: 2.0%. Prior Study Comparison: 05/06/2019 Right Diagnostic Mammogram, [facility]. 12/22/2020 Bilateral Screening Mammogram, [facility]. 02/06/2022 Bilateral MG 3D screening mammo w/cad, [facility]. Tissue Density: There are scattered fibroglandular densities. Findings: Analyzed By CAD. There is no suspicious group of microcalcifications or new suspicious mass in either breast. Overall Assessment: Benign, BI-RAD 2 Management: Screening Mammogram of both breasts in 1 year. . Patient should continue monthly self-breast exams. A clinical breast exam by your physician is recommended on an annual basis. This exam should not preclude additional follow-up of suspicious palpable abnormalities. Note on Bibi scores and lifetime risk: 1. A Bibi score greater than 3% is considered moderate risk. If this is the case, consider specialist referral to assess eligibility for a risk reducing agent. 2. If overall lifetime risk for the development of breast cancer is 20% or higher, the patient may qualify for future screening with alternating mammogram and breast MRI. Electronically signed and approved by: Roger Castaneda M.D. Radiologis
== END | disposition home or self-care (01) ==
LOC: RADMAMWWP 12:51
PROVIDERS: ATTEND Internal Medicine
DX: Z12.31 Encounter for screening mammogram for malignant neoplasm of breast (principal); Z78.0 Asymptomatic menopausal state
CPT/HCPCS: 77063; 77067

== ENCOUNTER 2023-02-11 19:30 | Emergency (ER) | payer MEDICARE ==
[2023-02-11 19:42] VITALS: RESP 18
[2023-02-11] MEDS ORDERED: KETOROLAC 15 MG/ML 1 ML VIAL IVP STA (21:15)
[2023-02-11] MEDS ORDERED: SODIUM CHLORIDE 0.9% 500 ML 500 ML IV STA (21:15)
[2023-02-11] MEDS ORDERED: ACETAMINOPHEN TAB 500 MG TAB PO STA (21:15)
[2023-02-11] MEDS ORDERED: MECLIZINE 12.5 MG TAB PO STA (21:16)
[2023-02-11 21:30] LABS: Basophils % (A) 0 %; Eosinophils # (A) 0.5 k/uL (0-0.7); Eosinophils % (A) 5 %; Lymphocytes # (A) 2.9 k/uL (1.0-4.8); Lymphocytes % (A) 26 %; MCH 29.1 pg (25.0-35.0); MCHC 33.9 g/dL (31.0-37.0); MCV 85.7 fL (80.0-100.0); Mean Platelet Volume 7.4; Monocytes # (A) 0.8 k/uL (0-1.0); Monocytes % (A) 7 %; Neutrophils # (A) 6.5 k/uL (1.3-7.7); Neutrophils % (A) 59 %; Platelet Count 196 k/uL (150-450); RBC 5.49 m/uL (3.80-5.40); RDW 13.8 % (11.5-15.5)
[2023-02-11 21:42] LABS: ALT 26 U/L (4-34); AST 34 U/L (14-36); African American GFR (CKD) 76 (>60 ml/min/1.73 sqM); Albumin 4.4 g/dL (3.5-5.0); Alkaline Phosphatase 93 U/L (38-126); Anion Gap 11 mmol/L; Blood Urea Nitrogen 21 mg/dL (7-17); Calcium 9.1 mg/dL (8.4-10.2); Carbon Dioxide 30 mmol/L (22-30); Chloride 96 mmol/L (98-107); Glucose 98 mg/dL (74-99); Non-African American GFR(CKD) 66 (>60 ml/min/1.73 sqM); Sodium 137 mmol/L (137-145); Total Bilirubin 0.6 mg/dL (0.2-1.3); Total Protein 8.1 g/dL (6.3-8.2)
[2023-02-11 21:46] LABS: Appearance,Urine Clear (Clear); Bilirubin,Urine Negative (Negative); Blood,Urine Negative (Negative); Color,Urine Colorless; Glucose,Urine (UA) Negative (Negative); Ketones,Urine Negative (Negative); Leukocyte Esterase,Urine Small (Negative); Mucus,Urine Rare /hpf; Nitrite,Urine Negative (Negative); PH, Urine 5.5 (5.0-8.0); Protein,Urine Negative (Negative); RBC,Urine 1 /hpf (0-5); Specific Gravity,Urine 1.004 (1.001-1.035); Squamous Epithelial Cell,Urine <1 /hpf (0-4); Urobilinogen,Urine <2.0 mg/dL (<2.0); WBC,Urine 6 /hpf (0-5)
--- NOTE | 2023-02-11 22:36 | CT ---
EXAMINATION TYPE: CT brain leydiine wo con DATE OF EXAM: 02/11/2023 COMPARISON: None HISTORY: Headache, neck pain. CT DLP: 1471.1 mGycm, Automated exposure control for dose reduction was used. CONTRAST: None CT of the brain is performed utilizing 3 mm thick sections through the posterior fossa and 3 mm thick sections through the remaining calvarium. Study is performed within 24 hours of arrival to the hospital. No abnormal hyperdensity is present to suggest an acute intracranial hemorrhage. No mass lesion is evident. No acute infarcts are evident. Ventricles and sulci are appropriate for the patient age. Some mild hyperostosis frontalis internus is present, a normal variant. Paranasal sinuses and mastoid air cells within the [id number] are clear. IMPRESSIONS: 1. Normal CT brain. CT cervical spine. COMPARISON: None CT of the cervical spine is performed in the axial plane at 2 mm thick sections. Reconstructed image s in the coronal, and sagittal plane are reviewed on the computer. No acute fractures are evident. Vertebral body alignment is straightened There is diffuse loss of disc height throughout the cervical spine. This appears greatest at C4-5 and C5-6, and C6-7. Vertebral body heights are preserved. No spinal canal stenosis is evident. There is some mild endplate spurring at the superior endplate of C7 with mild anterior thecal sac compression. No spinal canal stenosis is present. Uncovertebral joint hypertrophy is severe left foraminal stenosis C6-7. Bilateral foraminal stenosis is present at C4-5 and C5-6 from uncovertebral joint hypertrophy. Left foraminal stenosis is present see 3 4 from uncovertebral joint hypertrophy. There is a 0.9 cm pleural-based density posterior right apex within the [id number]. IMPRESSIONS: 1. No acute osseous abnormality cervical spine. 2. Degenerative disc changes with uncovertebral hypertrophy. Foraminal stenosis is present in the mid cervical spine discussed above. 3. Note is made of a pleural-based density measuring 0.9 cm right posterior lung
[2023-02-11] MEDS ORDERED: Potassium Replacement Protocol 1 EACH MISC MISCELLANE PRN (22:44)
[2023-02-11] MEDS: POTASSIUM CHLORIDE ER 20 MEQ TAB.ER PO SCH ×2 (23:15→23:33)
--- NOTE | 2023-02-11 23:26 | ED ---
Headache HPI - General Chief Complaint: Headache Stated Complaint: previous fall-balance issues Time Seen by Provider: 02/11/23 20:57 Mode of arrival: wheelchair - History of Present Illness Initial Comments: 72-year-old female presenting with chief complaint of neck pain and headache. Patient states it has been ongoing since a fall that occurred on December 31, patient did hit the right side of her face, there was no loss of consciousness and no blood thinners.. Patient is currently following with a spinal specialist and had an MRI done yesterday, has not received results yet. She states that she has pain near the base of the skull which radiates up and around the skull as well as down the neck. She states that she previously had some problems with balance but this has since improved. No vision or hearing changes. No nausea or vomiting. No numbness, tingling, weakness. No chest pain or difficulty breathing. No abdominal pain. - Related Data Home Medications Medication Instructions Recorded Confirmed Atorvastatin [Lipitor] 20 mg PO HS@1900 07/14/16 06/17/22 Levothyroxine Sodium [Synthroid] 75 mcg PO AC-BRKFST 07/14/16 06/17/22 Metoprolol Tartrate [Lopressor] 25 mg PO BID@0830,1900 07/14/16 06/17/22 Ascorbic Acid [Vitamin C] 1,000 mg PO DAILY 08/05/20 06/17/22 Latanoprost [Xalatan 0.005%] 1 drop BOTH EYES HS@1900 08/05/20 06/17/22 Bumetanide [BUMEX] 1 mg PO DIRECTED 10/17/21 06/17/22 Potassium Chloride [Klor-Con 20] 10 meq PO BID 10/17/21 06/17/22 Topiramate 50 mg PO HS@1900 10/17/21 06/17/22 Triamterene-Hctz 37.5-25Mg 1 tab PO DIRECTED 10/17/21 06/17/22 [Maxzide 37.5-25] Cholecalciferol [Vitamin D3 (25 50 mcg PO HS@1900 06/17/22 06/17/22 Mcg = 1000 Iu)] Previous Rx's Medication Instructions Recorded Meclizine [Antivert] 25 mg PO BID PRN #10 tab 02/11/23 Allergies Allergy/AdvReac Type Severity Reaction Status Date / Time amoxicillin Allergy Rash/Hives Verified 02/11/23 19:42 azithromycin [From Zithromax] Allergy Swelling Verified 02/11/23 19:43 atenolol [From Tenormin] AdvReac INTENSIFIES Verified 02/11/23 19:42 ASTHMA levofloxacin [From Levaquin] AdvReac INTENSIFIES Verified 02/11/23 19:42 SOUNDS/INSOMNIA Review of Systems ROS Statement: Those systems with pertinent positive or pertinent negative responses have been documented in the HPI. ROS Other: All systems not noted in ROS Statement are negative. Past Medical History Past Medical History: Hypertension Additional Past Medical History / Comment(s): tested positive for Covid in February 2022,tested positive for covid in Aug 2021,hand tremors, cellulitis lt leg approx 12 yrs ago, GOUT,hemorrhoids,anal fistual back 5th grade History of Any Multi-Drug Resistant Organisms: None Reported Past Surgical History: Cholecystectomy Additional Past Surgical History / Comment(s): knee replacement bilateral ,d&c,ganglion cyst removed rt wrist,pain clinic procedures Past Anesthesia/Blood Transfusion Reactions: No Reported Reaction, Family History of Problems w/ Anesthesia Additional Past Anesthesia/Blood Transfusion Reaction / Comment(s): woke up during knee surgery. son has hard time coming out of anesthesia Past Psychological History: Anxiety Smoking Status: Never smoker Past Alcohol Use History: None Reported Past Drug Use History: None Reported - Past Family History Mother Family Medical History: Cancer, Deep Vein Thrombosis (DVT) Additional Family Medical History / Comment(s): lung-[place] fever General Exam Limitations: no limitations General appearance: alert, in no apparent distress Head exam: Present: atraumatic, normocephalic, normal inspection Eye exam: Present: normal appearance, PERRL, EOMI. Absent: scleral icterus, conjunctival injection, periorbital swelling Neck exam: Present: normal inspection, tenderness, full ROM Respiratory exam: Present: normal lung sounds bilaterally. Absent: respiratory distress, wheezes, rales, rhonchi, stridor Cardiovascular Exam: Present: regular rate, normal rhythm, normal heart sounds. Absent: systolic murmur, diastolic murmur, rubs, gallop, clicks Extremities exam: Present: normal inspection, full ROM Neurological exam: Present: alert, oriented X3, CN II-XII intact Expanded Patient oriented to: Present: person, place, time Speech: Present: fluid speech Cranial nerves: EOM's Intact: Normal Motor strength exam: RUE: 5, LUE: 5, RLE: 5, LLE: 5 Eye Response: (4) open spontaneously Motor Response: (6) obeys commands Verbal Response: (5) oriented Cheli Total: 15 Psychiatric exam: Present: normal affect, normal mood Skin exam: Present: warm, dry, intact, normal color. Absent: rash Course Vital Signs 02/11/23 02/11/23 19:38 23:00 Temperature 98.1 F 98.0 F Pulse Rate 68 70 Respiratory 18 18 Rate Blood Pressure 136/77 132/79 O2 Sat by Pulse 99 99 Oximetry Medical Decision Making - Medical Decision Making Was pt. sent in by a medical professional or institution (, PA, FINANCIAL AIDS OFFICER, urgent care, hospital, or senior care...) When possible be specific @ -No Did you speak to anyone other than the patient for history (EMS, parent, family, police, friend...)? What history was obtained from this source @ -No Did you review nursing and triage notes (agree or disagree)? Why? @ -I reviewed and agree with nursing and triage notes Were old charts reviewed (outside hosp., previous admission, EMS record, old EKG, old radiological studies, urgent care reports/EKG's, senior care records)? Report findings @ -No old charts were reviewed Differential Diagnosis (chest pain, altered mental status, abdominal pain women, abdominal pain men, vaginal bleeding, weakness, fever, dyspnea, syncope, headache, dizziness, GI bleed, back pain, seizure, CVA, palpatations, mental health, musculoskeletal)? @ -MDM Differential Headache: Migraine, tension, cluster, carbon monoxide, central venous thrombosis, pension karma temporal arteritis, acute closure glaucoma, intercranial hemorrhage, mastoiditis, sinusitis, head injury this is not meant to be an all-inclusive list. EKG interpreted by me (3pts min.). @ -As above X-rays interpreted by me (1pt min.). @ -None done CT interpreted by me (1pt min.). @ -CT shows no acute intracranial process and no fracture of the cervical spine, density seen to the right posterior lung, patient is having no chest pain or difficulty breathing U/S interpreted by me (1pt. min.). @ -None done What testing was considered but not performed or refused? (CT, X-rays, U/S, labs)? Why? @ -None What meds were considered but not given or refused? Why? @ -None Did you discuss the management of the patient with other professionals (professionals i.e. Dr., PA, FINANCIAL AIDS OFFICER, lab, RT, psych nurse, delinquency prevention social worker, audit associate, teacher, chief green officer, housing case manager)? Give summary @ -No Was smoking cessation discussed for >3mins.? @ -No Was critical care preformed (if so, how long)? @ -No Were there social determinants of health that impacted care today? How? (Home lessness, low income, unemployed, alcoholism, drug addiction, transportation, low edu. Level, literacy, decrease access to med. care, fpc, rehab)? @ -No Was there de-escalation of care discussed even if they declined (Discuss DNR or withdrawal of care, Hospice)? DNR status @ -No What co-morbidities impacted this encounter? (DM, HTN, Smoking, COPD, CAD, Cancer, CVA, ARF, Chemo, Hep., AIDS, mental health diagnosis, sleep apnea, morbid obesity)? @ -None Was patient admitted / discharged? Hospital course, mention meds given and route, prescriptions, significant lab abnormalities, going to OR and other pertinent info. @ -72-year-old female presents with chief complaint of headache and neck pain. She does not take any mrgx-waf-onwmhmv analgesia at home. She is currently following with an orthopedic utilization review specialist. Physical examination is unremarkable, no focal neurological deficits. CT of the brain and cervical spine is essentially negative for acute process. Density noticed in the right posterior lung, patient is having no respiratory or cardiac symptoms. Potassium is 3.0, patient receives oral replacement here in the ER is instructed to contin ue taking her potassium replacement at home. Patient is educated on today's findings instructed to follow-up with her orthopedic spinal specialist and PCP. Follow-up with PCP. Report back to ER with any new or worsening symptoms. Discussed return parameters and answered all questions. Patient conveyed verbal understanding and agreed to the plan. I discussed this case in detail with my attending Dr. Ash Undiagnosed new problem with uncertain prognosis? @ -No Drug Therapy requiring intensive monitoring for toxicity (Heparin, Nitro, Insulin, Cardizem)? @ -No Were any procedures done? @ -No Diagnosis/symptom? @ -Headache, cervical radiculopathy, hypokalemia Acute, or Chronic, or Acute on Chronic? @ -Acute Uncomplicated (without systemic symptoms) or Complicated (systemic symptoms)? @ -Uncomplicated Side effects of treatment? @ -No Exacerbation, Progression, or Severe Exacerbation? @ -No Poses a threat to life or bodily function? How? (Chest pain, USA, AR, pneumonia, PE, COPD, DKA, ARF, appy, cholecystitis, CVA, Diverticulitis, Homicidal, Mnoreal icidal, threat to staff... and all critical care pts) @ -Low likelihood - Lab Data Result diagrams: 02/11/23 21:21 02/11/23 21:21 Lab Results 02/11/23 02/11/23 02/11/23 Range/Units 21:21 21:21 21:30 WBC 11.0 H (3.8-10.6) k/uL RBC 5.49 H (3.80-5.40) m/uL Hgb 16.0 (11.4-16.0) gm/dL Hct 47.0 H (34.0-46.0) % MCV 85.7 (80.0-100.0) fL MCH 29.1 (25.0-35.0) pg MCHC 33.9 (31.0-37.0) g/dL RDW 13.8 (11.5-15.5) % Plt Count 196 (150-450) k/uL MPV 7.4 Neutrophils % 59 % Lymphocytes % 26 % Monocytes % 7 % Eosinophils % 5 % Basophils % 0 % Neutrophils # 6.5 (1.3-7.7) k/uL Lymphocytes # 2.9 (1.0-4.8) k/uL Monocytes # 0.8 (0-1.0) k/uL Eosinophils # 0.5 (0-0.7) k/uL Basophils # 0.0 (0-0.2) k/uL Sodium 137 (137-145) mmol/L Potassium 3.0 L (3.5-5.1) mmol/L Chloride 96 L (98-107) mmol/L Carbon Dioxide 30 (22-30) mmol/L Anion Gap 11 mmol/L BUN 21 H (7-17) mg/dL Creatinine 0.87 (0.52-1.04) mg/dL Est GFR (CKD-EPI)AfAm 76 (>60 ml/min/1.73 sqM) Est GFR (CKD-EPI)NonAf 66 (>60 ml/min/1.73 sqM) Glucose 98 (74-99) mg/dL Calcium 9.1 (8.4-10.2) mg/dL Total Bilirubin 0.6 (0.2-1.3) mg/dL AST 34 (14-36) U/L ALT 26 (4-34) U/L Alkaline Phosphatase 93 (38-126) U/L Total Protein 8.1 (6.3-8.2) g/dL Albumin 4.4 (3.5-5.0) g/dL Urine Color Colorless Urine Appearance Clear (Clear) Urine pH 5.5 (5.0-8.0) Ur Specific [place] 1.004 (1.001-1.035) Urine Protein Negative (Negative) Urine Glucose (UA) Negative (Negative) Urine Ketones Negative (Negative) Urine Blood Negative (Negative) Urine Nitrite Negative (Negative) Urine Bilirubin Negative (Negative) Urine Urobilinogen <2.0 (<2.0) mg/dL Ur Leukocyte Esterase Small H (Negative) Urine RBC 1 (0-5) /hpf Urine WBC 6 H (0-5) /hpf Ur Squamous Epith Cells <1 (0-4) /hpf Urine Mucus Rare H (None) /hpf Disposition Clinical Impression: Headache, Cervical radiculopathy Disposition: HOME SELF-CARE Condition: Good Instructions (If sedation given, give patient instructions): Acute Headache (ED), Cervical Radiculopathy (ED), Neck Pain (ED) Additional Instructions: Follow-up with PCP and your orthopedic spinal specialist. Report back to ER wi th any new or worsening symptoms. Take Motrin and Tylenol as needed for pain control. Prescriptions: Meclizine [Antivert] 25 mg PO BID PRN #10 tab PRN Reason: Vertigo Is patient prescribed a controlled substance at d/c from ED?: No Referrals: Nik Bautista MD [Primary Care Provider] - 1-2 days Time of Disposition: 23:26
[2023-02-11 23:35] VITALS: BP 132/79; PULSE 70; TEMP 98
== END 2023-02-11 23:41 | disposition home or self-care (01) ==
LOC: EC 19:30
DX: E87.6 Hypokalemia (principal); M54.12 Radiculopathy, cervical region; R51.9 Headache, unspecified; I10 Essential (primary) hypertension; F41.9 Anxiety disorder, unspecified; Z79.899 Other long term (current) drug therapy; Z88.0 Allergy status to penicillin; Z88.1 Allergy status to other antibiotic agents; Z88.8 Allergy status to other drugs, medicaments and biological substances
CPT/HCPCS: 36415; 80053; 85025; 81001; 72125; 70450; 99284; 96374; 96361 ×2; J1885

== ENCOUNTER 2023-05-22 12:01 | Emergency (ER) | payer MEDICARE ==
--- NOTE | 2023-05-22 12:33 | ED ---
Recheck HPI - General Source: patient, RN notes reviewed Mode of arrival: ambulatory Limitations: no limitations - History of Present Illness MD Complaint: other (Elevated BP) <Negra Kenny - Last Filed: 05/22/23 12:30> <Mohan Diaz - Last Filed: 05/22/23 18:26> - General Chief Complaint: Recheck/Abnormal Lab/Rx Stated Complaint: High BP Time Seen by Provider: 05/22/23 12:31 - History of Present Illness Initial Comments: This is a 72 year old female who presents to the emergency department for elevated BP. She had injections in her neck at [facility] 6 days ago, and her BP was in the 180s systolically. She saw Dr. Coffey in the office yesterday, and her BP was 160 systolically. He prescribed her with Losartan, however it is not ready yet. Today she felt like she was going to pass out while in [facility], prompting her to come here. She has headaches all of the time and is unsure if it is worse. (Negra Kenny) 42-year-old female presents to the ED with a chief complaint of dizziness. Patient notes that since late December after she fell and hit the right side of her head has had problems with headache and neck pain. Also noted problems with dizziness noting that she feels off balance. Patient reports that over the past few months this issue has gradually improved however today while at [facility] stated that she started to feel this sensation of dizziness again. Describes it as feeling like she is going to pass out and as if she is off balance on her feet. Due to this presented to the ED for further evaluation. Patient did not injure herself or fall due to her symptoms today. Denies chest pain or shortness of breath. At present, reports dizziness resolved. (Mohan Diaz) - Related Data Home Medications Medication Instructions Recorded Confirmed Atorvastatin [Lipitor] 20 mg PO DAILY 07/14/16 05/22/23 Levothyroxine Sodium [Synthroid] 75 mcg PO DAILY 07/14/16 05/22/23 Metoprolol Tartrate [Lopressor] 25 mg PO BID 07/14/16 05/22/23 Ascorbic Acid [Vitamin C] 1,000 mg PO DAILY 08/05/20 05/22/23 Latanoprost [Xalatan 0.005%] 1 drop BOTH EYES HS 08/05/20 05/22/23 Bumetanide [BUMEX] 1 mg PO DAILY 10/17/21 05/22/23 Potassium Chloride [Klor-Con 20] 20 meq PO TID 10/17/21 05/22/23 Topiramate 50 mg PO HS 10/17/21 05/22/23 Triamterene-Hctz 37.5-25Mg 1 tab PO DAILY 10/17/21 05/22/23 [Maxzide 37.5-25] Cholecalciferol [Vitamin D3 (25 50 mcg PO HS 06/17/22 05/22/23 Mcg = 1000 Iu)] ALPRAZolam [Xanax] 0.25 mg PO DAILY PRN 05/22/23 05/22/23 Albuterol Sulfate [Albuterol 1 - 2 puff PO RT-Q6H PRN 05/22/23 05/22/23 Sulfate Hfa] Febuxostat [Uloric] 80 mg PO DIRECTED 05/22/23 05/22/23 Losartan [Cozaar] 50 mg PO DIRECTED 05/22/23 05/22/23 Allergies Allergy/AdvReac Type Severity Reaction Status Date / Time amoxicillin Allergy Rash/Hives Verified 05/22/23 15:35 azithromycin [From Zithromax] Allergy Swelling Verified 05/22/23 15:35 atenolol [From Tenormin] AdvReac INTENSIFIES Verified 05/22/23 15:35 ASTHMA levofloxacin [From Levaquin] AdvReac INTENSIFIES Verified 05/22/23 15:35 SOUNDS/INSOMNIA Review of Systems ROS Other: All systems not noted in ROS Statement are negative. <Negra Kenny - Last Filed: 05/22/23 12:30> ROS Other: All systems not noted in ROS Statement are negative. <Mohan Diaz - Last Filed: 05/22/23 18:26> ROS Statement: Those systems with pertinent positive or pertinent negative responses have been documented in the HPI. Past Medical History Past Medical History: Hypertension Additional Past Medical History / Comment(s): tested positive for Covid in February 2022,tested positive for covid in Aug 2021,hand tremors, cellulitis lt leg approx 12 yrs ago, GOUT,hemorrhoids,anal fistual back 5th grade History of Any Multi-Drug Resistant Organisms: None Reported Past Surgical History: Cholecystectomy Additional Past Surgical History / Comment(s): knee replacement bilateral ,d&c,ganglion cyst removed rt wrist,pain clinic procedures Past Anesthesia/Blood Transfusion Reactions: No Reported Reaction, Family History of Problems w/ Anesthesia Additional Past Anesthesia/Blood Transfusion Reaction / Comment(s): woke up du ring knee surgery. son has hard time coming out of anesthesia Past Psychological History: Anxiety Smoking Status: Never smoker Past Alcohol Use History: None Reported Past Drug Use History: None Reported - Past Family History Mother Family Medical History: Cancer, Deep Vein Thrombosis (DVT) Additional Family Medical History / Comment(s): lung-Val[place] fever <Negra Kenny - Last Filed: 05/22/23 12:30> General Exam <Negra Kenny - Last Filed: 05/22/23 12:30> General appearance: alert, in no apparent distress Eye exam: Present: PERRL, EOMI, other (Horizontal nystagmus) ENT exam: Present: mucous membranes moist Respiratory exam: Present: normal lung sounds bilaterally Cardiovascular Exam: Present: regular rate, normal rhythm GI/Abdominal exam: Present: soft Neurological exam: Present: alert, oriented X3, CN II-XII intact (Finger to nose, rapid alternating hand movements, [id number] intact.) Skin exam: Present: warm, dry <Mohan Diaz - Last Filed: 05/22/23 18:26> - General Exam Comments Initial Comments: Visual Physical Exam Vital signs reviewed General: Well-appearing, nontoxic, no acute distress. Head: Normocephalic, atraumatic Eyes: PERRLA, EOMI ENT: Airway patent Chest: Nonlabored breathing Skin: No visual rash, normal skin tone Neuro: Alert and oriented 3 Musculoskeletal: No gross abnormalities I performed the QuickNote portion of this chart. Signed Negra Kenny PA-C. (eNgra Kneny) Course Vital Signs 05/22/23 05/22/23 05/22/23 12:31 14:39 16:50 Temperature 97.5 F L 98.0 F Pulse Rate 64 54 L 61 Pulse Rate [ Pulse Oximetery ] Respiratory 16 18 18 Rate Blood Pressure 150/68 152/74 154/78 Blood Pressure [Left Arm Sitting] Blood Pressure [Left Arm Standing] Blood Pressure [Left Arm Supine] O2 Sat by Pulse 100 98 99 Oximetry 05/22/23 17:50 Temperature Pulse Rate Pulse Rate [ 80 Pulse Oximetery ] Respiratory Rate Blood Pressure Blood Pressure 139/82 [Left Arm Sitting] Blood Pressure 134/84 [Left Arm Standing] Blood Pressure 142/58 [Left Arm Supine] O2 Sat by Pulse Oximetry Medical Decision Making - Lab Data Result diagrams: 05/22/23 14:10 05/22/23 14:10 <Mohan Diaz - Last Filed: 05/22/23 18:26> - Medical Decision Making Was pt. sent in by a medical professional or institution (, PA, FARM EQUIPMENT ASSEMBLER, urgent care, hospital, or detention...) When possible be specific @ -No Did you speak to anyone other than the patient for history (EMS, parent, family, police, friend...)? What history was obtained from this source @ -No Did you review nursing and triage notes (agree or disagree)? Why? @ -I reviewed and agree with nursing and triage notes Were old charts reviewed (outside hosp., previous admission, EMS record, old EKG, old radiological studies, urgent care reports/EKG's, detention records)? Report findings @ -No old charts were reviewed Differential Diagnosis (chest pain, altered mental status, abdominal pain women, abdominal pain men, vaginal bleeding, weakness, fever, dyspnea, syncope, headache, dizziness, GI bleed, back pain, seizure, CVA, palpatations, mental health, musculoskeletal)? @ -Differential Dizziness: Benign paroxysmal positional Vertigo, Menieres disease, otitis media, acoustic neuroma, vertebrobasilar insufficiency, cerebellar stroke, encephalitis, hypovolemic, arrhythmia, coronary artery syndrome, anemia, this is not meant to be an all-inclusive list EKG interpreted by me (3pts min.). @ -As above X-rays interpreted by me (1pt min.). @ -None done CT interpreted by me (1pt min.). @ -None done U/S interpreted by me (1pt. min.). @ -None done What testing was considered but not performed or refused? (CT, X-rays, U/S, labs)? Why? @ -None What meds were considered but not given or refused? Why? @ -None Did you discuss the management of the patient with other professionals (professionals i.e. , PA, FARM EQUIPMENT ASSEMBLER, lab, RT, psych nurse, manager social work, field assembly supervisor, teacher, workers' compensation hearings officer, vocational case manager)? Give summary @ -No Was smoking cessation discussed for >3mins.? @ -No Was critical care preformed (if so, how long)? @ -No Were there social determinants of health that impacted care today? How? (Homelessness, low income, unemployed, alcoholism, drug addiction, transportation, low edu. Level, literacy, decrease access to med. care, long-term, rehab)? @ -No Was there de-escalation of care discussed even if they declined (Discuss DNR or withdrawal of care, Hospice)? DNR status @ -No What co-morbidities impacted this encounter? (DM, HTN, Smoking, COPD, CAD, Cancer, CVA, ARF, Chemo, Hep., AIDS, mental health diagnosis, sleep apnea, morbid obesity)? @ -None Was patient admitted / discharged? Hospital course, mention meds given and route, prescriptions, significant lab abnormalities, going to OR and other pertinent info. @ -Discharge 72-year-old female presented to the ED with complaints of dizziness. Patient reports that this was a recurrent issue starting in December. Had a few weeks of relief however another episode today which patient reported this worse than usual in the past. CT brain showed no acute findings. Laboratory studies unremarkable. Patient does follow with neurology. Patient discharged home in stable condition and advised follow-up to neurology. Provided referral to our neurologist as patient reports that she is not "a fan" of her current neurologist. Discussed return precautions with patient who verbalizes agreement. Undiagnosed new problem with uncertain prognosis? @ -No Drug Therapy requiring intensive monitoring for toxicity (Heparin, Nitro, Insulin, Cardizem)? @ -No Were any procedures done? @ -No Diagnosis/symptom? @ -Dizziness Acute, or Chronic, or Acute on Chronic? @ -Acute Uncomplicated (without systemic symptoms) or Complicated (systemic symptoms)? @ -Uncomplicated Side effects of treatment? @ -No Exacerbation, Progression, or Severe Exacerbation? @ -No Poses a threat to life or bodily function? How? (Chest pain, [place], [place], pneumonia, PE, COPD, DKA, ARF, appy, cholecystitis, CVA, Diverticulitis, Homicidal, Suicidal, threat to staff... and all critical care pts) @ -No (Mohan Diaz) - Lab Data Lab Results 05/22/23 05/22/23 05/22/23 Range/Units 14:10 14:10 16:21 WBC 9.3 (3.8-10.6) k/uL RBC 5.51 H (3.80-5.40) m/uL Hgb 16.2 H (11.4-16.0) gm/dL Hct 48.5 H (34.0-46.0) % MCV 88.1 (80.0-100.0) fL MCH 29.4 (25.0-35.0) pg MCHC 33.4 (31.0-37.0) g/dL RDW 13.6 (11.5-15.5) % Plt Count 207 (150-450) k/uL MPV 7.2 Neutrophils % 55 % Lymphocytes % 30 % Monocytes % 6 % Eosinophils % 6 % Basophils % 0 % Neutrophils # 5.1 (1.3-7.7) k/uL Lymphocytes # 2.7 (1.0-4.8) k/uL Monocytes # 0.6 (0-1.0) k/uL Eosinophils # 0.6 (0-0.7) k/uL Basophils # 0.0 (0-0.2) k/uL PT 10.4 (9.0-12.0) sec INR 1.0 (<1.2) APTT 22.4 (22.0-30.0) sec Sodium 139 (137-145) mmol/L Potassium 3.9 (3.5-5.1) mmol/L Chloride 98 (98-107) mmol/L Carbon Dioxide 30 (22-30) mmol/L Anion Gap 11 mmol/L BUN 23 H (7-17) mg/dL Creatinine 0.74 (0.52-1.04) mg/dL Est GFR (CKD-EPI)AfAm >90 (>60 ml/min/1.73 sqM) Est GFR (CKD-EPI)NonAf 81 (>60 ml/min/1.73 sqM) Glucose 101 H (74-99) mg/dL Calcium 9.8 (8.4-10.2) mg/dL Total Bilirubin 0.6 (0.2-1.3) mg/dL AST 33 (14-36) U/L ALT 25 (4-34) U/L Alkaline Phosphatase 84 (38-126) U/L Troponin I (0.000-0.034) ng/mL Total Protein 8.3 H (6.3-8.2) g/dL Albumin 4.5 (3.5-5.0) g/dL Urine Color Urine Appearance (Clear) Urine pH (5.0-8.0) Ur Specific [place] (1.001-1.035) Urine Protein (Negative) Urine Glucose (UA) (Negative) Urine Ketones (Negative) Urine Blood (Negative) Urine Nitrite (Negative) Urine Bilirubin (Negative) Urine Urobilinogen (<2.0) mg/dL Ur Leukocyte Esterase (Negative) 05/22/23 05/22/23 Range/Units 16:21 16:52 WBC (3.8-10.6) k/uL RBC (3.80-5.40) m/uL Hgb (11.4-16.0) gm/dL Hct (34.0-46.0) % MCV (80.0-100.0) fL MCH (25.0-35.0) pg MCHC (31.0-37.0) g/dL RDW (11.5-15.5) % Plt Count (150-450) k/uL MPV Neutrophils % % Lymphocytes % % Monocytes % % Eosinophils % % Basophils % % Neutrophils # (1.3-7.7) k/uL Lymphocytes # (1.0-4.8) k/uL Monocytes # (0-1.0) k/uL Eosinophils # (0-0.7) k/uL Basophils # (0-0.2) k/uL PT (9.0-12.0) sec INR (<1.2) APTT (22.0-30.0) sec Sodium (137-145) mmol/L Potassium (3.5-5.1) mmol/L Chloride (98-107) mmol/L Carbon Dioxide (22-30) mmol/L Anion Gap mmol/L BUN (7-17) mg/dL Creatinine (0.52-1.04) mg/dL Est GFR (CKD-EPI)AfAm (>60 ml/min/1.73 sqM) Est GFR (CKD-EPI)NonAf (>60 ml/min/1.73 sqM) Glucose (74-99) mg/dL Calcium (8.4-10.2) mg/dL Total Bilirubin (0.2-1.3) mg/dL AST (14-36) U/L ALT (4-34) U/L Alkaline Phosphatase (38-126) U/L Troponin I <0.012 (0.000-0.034) ng/mL Total Protein (6.3-8.2) g/dL Albumin (3.5-5.0) g/dL Urine Color Colorless Urine Appearance Clear (Clear) Urine pH 5.0 (5.0-8.0) Ur Specific [place] 1.013 (1.001-1.035) Urine Protein Negative (Negative) Urine Glucose (UA) Negative (Negative) Urine Ketones Negative (Negative) Urine Blood Negative (Negative) Urine Nitrite Negative (Negative) Urine Bilirubin Negative (Negative) Urine Urobilinogen <2.0 (<2.0) mg/dL Ur Leukocyte Esterase Negative (Negative) - EKG Data EKG Comments: EKG shows a sinus rhythm at [address] and T-wave changes. HI 181, QRS 101, QT/QTc 441/411. (Mohan Diaz) Disposition <Negra Kenny - Last Filed: 05/22/23 12:30> Is patient prescribed a controlled substance at d/c from ED?: No Time of Disposition: 18:26 <Mohan Diaz - Last Filed: 05/22/23 18:26> Clinical Impression: Dizziness Disposition: HOME SELF-CARE Condition: Good Additional Instructions: Please return to the Emergency Department if symptoms worsen or any other concerns. Please follow-up with neurology. Referrals: Kristofer Coffey MD [Primary Care Provider] - 1-2 days Fransisco Webster MD [STAFF PHYSICIAN] - 1-2 days
[2023-05-22 14:22] LABS: Basophils % (A) 0 %; Eosinophils # (A) 0.6 k/uL (0-0.7); Eosinophils % (A) 6 %; HCT 48.5 % (34.0-46.0); HGB 16.2 gm/dL (11.4-16.0); Lymphocytes # (A) 2.7 k/uL (1.0-4.8); Lymphocytes % (A) 30 %; MCH 29.4 pg (25.0-35.0); MCHC 33.4 g/dL (31.0-37.0); MCV 88.1 fL (80.0-100.0); Mean Platelet Volume 7.2; Monocytes # (A) 0.6 k/uL (0-1.0); Monocytes % (A) 6 %; Neutrophils # (A) 5.1 k/uL (1.3-7.7); Neutrophils % (A) 55 %; Platelet Count 207 k/uL (150-450); RBC 5.51 m/uL (3.80-5.40); RDW 13.6 % (11.5-15.5); WBC 9.3 k/uL (3.8-10.6)
[2023-05-22 14:42] VITALS: RESP 18
[2023-05-22 14:57] LABS: ALT 25 U/L (4-34); AST 33 U/L (14-36); African American GFR (CKD) >90 (>60 ml/min/1.73 sqM); Albumin 4.5 g/dL (3.5-5.0); Alkaline Phosphatase 84 U/L (38-126); Anion Gap 11 mmol/L; Blood Urea Nitrogen 23 mg/dL (7-17); Calcium 9.8 mg/dL (8.4-10.2); Carbon Dioxide 30 mmol/L (22-30); Chloride 98 mmol/L (98-107); Glucose 101 mg/dL (74-99); Non-African American GFR(CKD) 81 (>60 ml/min/1.73 sqM); Potassium 3.9 mmol/L (3.5-5.1); Sodium 139 mmol/L (137-145); Total Bilirubin 0.6 mg/dL (0.2-1.3); Total Protein 8.3 g/dL (6.3-8.2)
[2023-05-22 16:36] LABS: Appearance,Urine Clear (Clear); Bilirubin,Urine Negative (Negative); Blood,Urine Negative (Negative); Color,Urine Colorless; Glucose,Urine (UA) Negative (Negative); Ketones,Urine Negative (Negative); Leukocyte Esterase,Urine Negative (Negative); Nitrite,Urine Negative (Negative); Protein,Urine Negative (Negative); Specific Gravity,Urine 1.013 (1.001-1.035); Urobilinogen,Urine <2.0 mg/dL (<2.0)
[2023-05-22 16:41] LABS: Partial Thromboplastin Time 22.4 sec (22.0-30.0); Prothrombin Time 10.4 sec (9.0-12.0)
--- NOTE | 2023-05-22 16:56 | CT ---
EXAMINATION TYPE: CT brain wo con DATE OF EXAM: 05/22/2023 COMPARISON: 02/11/2023 HISTORY: 72-year-old female Dizziness. TECHNIQUE: Examination was done in axial plane without intravenous contrast. Coronal and sagittal r econstructions performed. CT DLP: 1130.4 mGycm Automated exposure control for dose reduction was used. FINDINGS: There is no evidence of acute intracranial hemorrhage, acute ischemic changes, mass, mass-effect, or extra-axial fluid collection. There is no effacement of cerebral sulci or basal subarachnoid cister ns. There is no hydrocephalus. There is no midline shift. Cornejo-white matter distinction is preserv ed. Trace mucosal thickening ethmoid air cells. Leftward nasal septal deviation. IMPRESSION: No acute intracranial abnormality seen. Mild chronic ethmoid sinus disease.
[2023-05-22 17:12] VITALS: TEMP 98
[2023-05-22 17:58] VITALS: BP 142/58; PULSE 80
== END 2023-05-22 18:50 | disposition home or self-care (01) ==
LOC: EC 12:01
DX: R42 Dizziness and giddiness (principal); I10 Essential (primary) hypertension; F41.9 Anxiety disorder, unspecified; Z79.899 Other long term (current) drug therapy; Z88.0 Allergy status to penicillin; Z88.1 Allergy status to other antibiotic agents; Z88.8 Allergy status to other drugs, medicaments and biological substances; Z86.16 Personal history of COVID-19
CPT/HCPCS: 36415; 70450; 80053; 81003; 84484; 85025; 85610; 85730; 93005; 99284

== ENCOUNTER → 2024-02-11 | Outpatient (CLI) | payer MEDICARE ==
--- NOTE | 2024-02-14 17:56 | MM ---
Reason for Exam: Screening (asymptomatic). Last mammogram was performed 1 year(s) and 1 month(s) ago. Patient History: Menarche at age 10. First Full-Term at age 24. Postmenopausal. Patient has history of breast feeding. Estrogen for 2 years from age 50 until age 52. Risk Values: Bibi 5 year model risk: 2.0%. NCI Lifetime model risk: 4.2%. Prior Study Comparison: 12/22/2020 Bilateral Screening Mammogram, [facility]. 02/06/2022 Bilateral MG 3D screening mammo w/cad, [facility]. 02/07/2023 Bilateral MG 3D screening mammo w/cad, [facility]. Tissue Density: There are scattered areas of fibroglandular density. Findings: Analyzed By CAD. There is chronic bilateral nodularity in an overall benign pattern. Benign bilateral oil cyst calcifications. There is no suspicious group of microcalcifications or new suspicious mass in either breast. Overall Assessment: Benign, BI-RAD 2 Management: Screening Mammogram of both breasts in 1 year. . Patient should continue monthly self-breast exams. A clinical breast exam by your physician is recommended on an annual basis. This exam should not preclude additional follow-up of suspicious palpable abnormalities. Note on Bibi scores and lifetime risk: 1. A Bibi score greater than 3% is considered moderate risk. If this is the case, consider specialist referral to assess eligibility for a risk reducing agent. 2. If overall lifetime risk for the development of breast cancer is 20% or higher, the patient may qualify for future screening with alternating mammogram and breast MRI. Electronically signed and approved by: Brenda Parmar M.D. Radiologist
== END | disposition home or self-care (01) ==
LOC: RADMAMWWP 09:22
PROVIDERS: ATTEND Internal Medicine
DX: Z12.31 Encounter for screening mammogram for malignant neoplasm of breast (principal); Z78.0 Asymptomatic menopausal state
CPT/HCPCS: 77063; 77067

== ENCOUNTER → 2024-05-11 | Outpatient (CLI) | payer MEDICARE ==
--- NOTE | 2024-05-11 15:49 | XR ---
EXAMINATION TYPE: XR chest 2V DATE OF EXAM: 05/11/2024 COMPARISON: 06/06/2022 INDICATION: Cough, bronchitis TECHNIQUE: Frontal and lateral views of the chest are obtained. FINDINGS: The heart size is normal. The pulmonary vasculature is normal. The lungs are clear. IMPRESSION: 1. No acute pulmonary process. [facility], Workstation: [facility], 05/11/2024 3:47 PM
== END | disposition home or self-care (01) ==
LOC: RADXRMAIN 15:14
PROVIDERS: ATTEND Internal Medicine
DX: R05.9 Cough, unspecified (principal)
CPT/HCPCS: 71046

== ENCOUNTER → 2025-02-15 | Outpatient (CLI) | payer MEDICARE ==
--- NOTE | 2025-02-15 10:10 | MM ---
Reason for Exam: Screening (asymptomatic). Last screening mammogram was performed 12 month(s) ago. Patient History: Menarche at age 10. First Full-Term at age 24. Postmenopausal. Patient has history of breast feeding. Estrogen for 2 years from age 50 until age 52. Risk Values: Bibi 5 year model risk: 2.0%. NCI Lifetime model risk: 4.0%. Prior Study Comparison: 02/06/2022 Bilateral MG 3D screening mammo w/cad, [facility]. 02/07/2023 Bilateral MG 3D screening mammo w/cad, [facility]. 02/11/2024 Bilateral MG 3D screening mammo w/cad, [facility]. Tissue Density: The breasts are heterogeneously dense, which may obscure small masses. Findings: Analyzed By CAD. Stable well-circumscribed small masses bilaterally. Stable size scattered and grouped benign-appearing round calcifications bilaterally redemonstrated. There is no suspicious group of microcalcifications or new suspicious mass in either breast. Overall Assessment: Benign, BI-RAD 2 Management: Screening Mammogram of both breasts in 1 year. . Patient should continue monthly self-breast exams. A clinical breast exam by your physician is recommended on an annual basis. This exam should not preclude additional follow-up of suspicious palpable abnormalities. Note on Bibi scores and lifetime risk: 1. A Bibi score greater than 3% is considered moderate risk. If this is the case, consider specialist referral to assess eligibility for a risk reducing agent. 2. If overall lifetime risk for the development of breast cancer is 20% or higher, the patient may qualify for future screening with alternating mammogram and breast MRI. [facility], , 02/15/2025 10:07 AM. Electronically signed and approved by: Michele Lopez M.D.
== END | disposition home or self-care (01) ==
LOC: RADMAMWWP 09:11
PROVIDERS: ATTEND Internal Medicine
DX: Z12.31 Encounter for screening mammogram for malignant neoplasm of breast (principal); R92.333 Mammographic heterogeneous density, bilateral breasts; Z78.0 Asymptomatic menopausal state
CPT/HCPCS: 77063; 77067